=== PATIENT | male | born 1955 | race Caucasian/White ===

== ENCOUNTER 2023-01-09 18:32 | Emergency (ER) | payer OTHER, SELFPAY ==
[2023-01-09] VITALS (13 sets, daily range): BP systolic 138–174; BP diastolic 62–75; PULSE 82–135; RESP 20–26; TEMP 36.4; O2SAT 93–98; BMI 38.3
--- NOTE | 2023-01-09 19:20 | DI.RAD.S_ITS ---
PROCEDURE: XR CHEST 1V INDICATIONS: SOB TECHNIQUE: One view of the chest was acquired. COMPARISON: None. FINDINGS: Surgical changes and devices: None. Lungs and pleura: Left lower lobe infiltrate suspicious for pneumonia. No pleural effusions or pneumothorax. Mediastinum: Mediastinal contours appear normal. Heart size is mildly increased. Bones and chest wall: No suspicious bony lesions. Overlying soft tissues appear unremarkable. IMPRESSION: Left lower lobe pneumonia. Dictated by: Malorie Luke M.D. on 01/09/2023 at 19:58 Approved by: Malorie Luke M.D. on 01/09/2023 at 19:59
--- NOTE | 2023-01-09 19:41 | ED_ITS ---
HPI - General Adult <DO Vlad Faulkner Last Filed: 01/10/23 17:58> General Chief complaint: Shortness of Breath/Dyspnea Stated complaint: severe shortness of breath, weakness Time Seen by Provider: 01/09/23 19:32 Source: patient Mode of arrival: Wheelchair Limitations: no limitations History of Present Illness HPI narrative: Patient is a 67-year-old male who arrives with his son. He has a history of CLL. He is not currently being treated for this. He denies any prior cardiac history. No prior pulmonary history. Has never had a stroke. Does have a history of high blood pressure. No diagnosis of heart failure who arrives to the emergency department for evaluation of several weeks if not longer of shortness of breath and dyspnea on exertion. He does having swelling in his legs but he states that that is actually improved what it has been in the past. He is not having any chest pain. No cough. He states it is becoming very difficult for him to get up and walk around. He denies any fevers. Patient also states that for the past several weeks he has been on a strictly keto diet. He is no history of diabetes. Related Data Home Medications Medication Instructions Recorded Confirmed lisinopril 20 mg tablet 20 mg PO DAILY 02/21/22 02/21/22 rosuvastatin 5 mg tablet 5 mg PO DAILY 02/21/22 02/21/22 Previous Rx's Medication Instructions Recorded oxycodone-acetaminophen 5 mg-325 1 tab PO TID PRN pain #9 tabs 02/21/22 mg tablet Allergies Allergy/AdvReac Type Severity Reaction Status Date / Time iodine Allergy Intermediate Hives Verified 02/21/22 09:57 Review of Systems <DO Vlad Faulkner Last Filed: 01/10/23 17:58> Review of Systems ROS Unobtainable: All systems reviewed & are unremarkable except as noted in HPI and below Patient History <DO Vlad Faulkner Last Filed: 01/10/23 17:58> Medical History CLL (chronic lymphocytic leukemia) Social History Smoking Status: Former smoker Smoking Status: Former smoker Substance Use Type: marijuana Exam <DO Vlad Faulkner Last Filed: 01/10/23 17:58> Initial Vital Signs Initial Vital Signs: Vital Signs Temperature 97.6 F 01/09/23 19:19 Pulse Rate 108 H 01/09/23 19:19 Respiratory Rate 22 01/09/23 19:19 Blood Pressure 174/75 H 01/09/23 19:19 Pulse Oximetry 94 01/09/23 19:19 Oxygen Delivery Method Room Air 01/09/23 19:19 Const General: cooperative, No acute distress, diaphoretic and ill appearing [facility] Head: normal to inspection and normocephalic Chest Chest: normal inspection of the chest Resp Effort & Inspection: labored, no retractions and tachypneic Auscultation: clear to auscultation bilaterally, no rhonchi and no wheezes Cardio Rate: regular rate Rhythm: regular rhythm Pulses: radial pulses present GI Inspection: normal to inspection and non-distended Skin General: no rashes or lesions noted Neuro General: patient alert, patient awake, patient oriented x3 and moves all extremities Extrem General: capillary refill normal and edema Psych Appearance: disheveled <Scott Agarwal MD - Last Filed: 01/17/23 07:22> Initial Vital Signs Initial Vital Signs: Vital Signs Temperature 97.6 F 01/09/23 19:19 Pulse Rate 108 H 01/09/23 19:19 Respiratory Rate 22 01/09/23 19:19 Blood Pressure 174/75 H 01/09/23 19:19 Pulse Oximetry 94 01/09/23 19:19 Oxygen Delivery Method Room Air 01/09/23 19:19 <Lona Rizvi DO - Last Filed: 01/13/23 10:05> Initial Vital Signs Initial Vital Signs: Vital Signs Temperature 97.6 F 01/09/23 19:19 Pulse Rate 108 H 01/09/23 19:19 Respiratory Rate 22 01/09/23 19:19 Blood Pressure 174/75 H 01/09/23 19:19 Pulse Oximetry 94 01/09/23 19:19 Oxygen Delivery Method Room Air 01/09/23 19:19 Procedures <Chang Santos DO - Last Filed: 01/10/23 17:58> Intubation sedative: Etomidate Mg Given: 20 paralytic: Succinylcholine Mg Given: 120 Laryngoscope: fiber optic video scope ET Tube Size: 7.5 ET Tube Uncuffed: No Tube Secured Depth (cm): 23 Tube Secured Location: teeth Tube Placement Confirmation: Visualized tube passing through cords, Equal breath sounds bilaterally and Chest Xray Patient Tolerated Procedure: Well <Scott Agarwal MD - Last Filed: 01/17/23 07:22> Central Line Placement Right Femoral: Time of procedure: 07:20 Time Out Performed: Yes Patient Placed on Monitor/Pulse Ox: Yes MD Prep: mask, gown and gloves Central Line Prep: Chlorhexidine scrub and sterile drapes applied Local Anesthetic: other anesthetic (Patient intubated/sedated) Ultrasound Used for Placement: No Central Line Lumen Inserted: triple Post Procedure: sutured in place, good blood return, all ports aspirated, flushed, capped and sterile dressing applied Patient Tolerated Procedure: Well Complications: none Scores <Chang Santos DO - Last Filed: 01/10/23 17:58> [employer] coma scale eye opening: Spontaneous [place] coma scale verbal response: Orientated [place] coma scale motor response: [employer] coma scale total score: 15 <Scott Agarwal MD - Last Filed: 01/17/23 07:22> [employer] coma scale total score: 15 <Lona Rizvi DO - Last Filed: 01/13/23 10:05> [employer] [place] coma scale total score: 15 Course <Chang Santos DO - Last Filed: 01/10/23 17:58> Orders Ordered: Discontinued Medications Amiodarone HCl (Amiodarone 150 Mg/3 Ml Vial) 150 mg IV NOW ONE Stop: 01/10/23 06:28 Last Admin: 01/10/23 06:33 Dose: 150 mg Documented By: RADHA Amiodarone HCl (Amiodarone 150 Mg/3 Ml Vial) 150 mg IV NOW ONE Stop: 01/10/23 06:47 Aspirin (Aspirin 81 Mg Chew Tab) 324 mg PO NOW ONE Stop: 01/09/23 21:41 Last Admin: 01/09/23 22:17 Dose: 324 mg Documented By: ANNI Diphenhydramine HCl (Diphenhydramine 50 Mg/Ml Vial) 25 mg IV NOW ONE Stop: 01/09/23 20:28 Last Admin: 01/09/23 20:46 Dose: 25 mg Documented By: ANNI Etomidate (Etomidate 2 Mg/Ml 10 Ml Vial) 20 mg IV NOW ONE Stop: 01/10/23 07:37 Furosemide (Furosemide 40 Mg Tablet) 40 mg PO NOW ONE Stop: 01/10/23 03:43 Last Admin: 01/10/23 04:42 Dose: 40 mg Documented By: ANNI Heparin Sodium (Porcine) (Heparin 5,000 Unit/Ml Vial) 5,000 unit IV NOW ONE Stop: 01/09/23 23:16 Last Admin: 01/09/23 23:36 Dose: 5,000 unit Documented By: ANNI Heparin Sodium (Porcine) (Heparin 5,000 Unit/Ml Vial) 3,000 unit IV NOW ONE Stop: 01/10/23 07:46 Last Admin: 01/10/23 07:49 Dose: 3,000 unit Documented By: KARISSA Levofloxacin (Levaquin) 750 mg in 150 mls @ 100 mls/hr IV NOW ONE Stop: 01/09/23 21:54 Last Infusion: 01/09/23 23:30 Dose: 0 mls/hr Documented By: Infusion: 01/09/23 21:31 Dose: 100 mls/hr Documented By: Infusion: 01/09/23 20:58 Dose: 0 mls/hr Documented By: Admin: 01/09/23 20:58 Dose: 100 mls/hr Documented By: ANNI Heparin Sodium/Dextrose (Heparin Drip) 25,000 unit in 500 mls @ 20 mls/hr IV CONT CAITLYN; Protocol Last Titration: 01/10/23 10:47 Dose: 0 units/hr, 0 mls/hr Documented By: Titration: 01/10/23 08:35 Dose: 0 units/hr, 0 mls/hr Documented By: Admin: 01/10/23 07:55 Dose: 1,100 units/hr, 22 mls/hr Documented By: Titration: 01/10/23 07:55 Dose: 1,100 units/hr, 22 mls/hr Documented By: Titration: 01/10/23 06:30 Dose: 0 units/hr, 0 mls/hr Documented By: Admin: 01/09/23 23:46 Dose: 1,000 units/hr, 20 mls/hr Documented By: ANNI Furosemide 60 mg/ Sodium (Chloride) 56 mls @ 112 mls/hr IV NOW ONE Stop: 01/10/23 02:40 Last Admin: 01/10/23 03:46 Dose: Not Given Documented By: ANNI Amiodarone HCl/Dextrose (Nexterone) 360 mg in 200 mls @ 33.333 mls/hr IV NOW ONE; Protocol Stop: 01/10/23 12:31 Last Titration: 01/10/23 10:48 Dose: 33.33 mls/hr, 33.33 mls/hr Documented By: Admin: 01/10/23 07:00 Dose: 33.3 mls/hr, 33.3 mls/hr Documented By: KARISSA Fentanyl 1,000 mcg/ Dextrose 250 mls @ 21.829 mls/hr IV TITRATE CAITLYN; Protocol Last Titration: 01/10/23 10:48 Dose: 2 mcg/kg/hr, 62.369 mls/hr Documented By: Titration: 01/10/23 08:55 Dose: 2 mcg/kg/hr, 62.369 mls/hr Documented By: Titration: 01/10/23 08:02 Dose: 1 mcg/kg/hr, 31.185 mls/hr Documented By: Admin: 01/10/23 07:00 Dose: 0.7 mcg/kg/hr, 21.829 mls/hr Documented By: KARISSA Midazolam HCl 50 mg/ Dextrose 250 mls @ 25 mls/hr IV TITRATE CAITLYN; Protocol Last Infusion: 01/10/23 10:49 Dose: 10 mg/hr, 50 mls/hr Documented By: Infusion: 01/10/23 10:00 Dose: 10 mg/hr, 50 mls/hr Documented By: Infusion: 01/10/23 08:56 Dose: 7 mg/hr, 35 mls/hr Documented By: Admin: 01/10/23 07:10 Dose: 5 mg/hr, 25 mls/hr Documented By: KARISSA Dobutamine HCl/Dextrose (Dobutamine 250 Mg In D5w) 250 mg in 250 mls @ 18.711 mls/hr IV TITRATE CAITLYN; Protocol Last Titration: 01/10/23 10:49 Dose: 7 mcg/kg/min, 52.39 mls/hr Documented By: Titration: 01/10/23 08:18 Dose: 7 mcg/kg/min, 52.39 mls/hr Documented By: Admin: 01/10/23 08:05 Dose: 2.5 mcg/kg/min, 18.711 mls/hr Documented By: KARISSA NOREPINEPHRINE BITARTRATE/D5W (Levophed) 4 mg in 250 mls @ 30 mls/hr IV TITRATE CAITLYN; Protocol Last Titration: 01/10/23 10:49 Dose: 20 mcg/min, 75 mls/hr Documented By: Admin: 01/10/23 10:00 Dose: 20 mcg/min, 75 mls/hr Documented By: Titration: 01/10/23 10:00 Dose: 20 mcg/min, 75 mls/hr Documented By: Admin: 01/10/23 08:16 Dose: 20 mcg/min, 75 mls/hr Documented By: KARISSA Amiodarone HCl/Dextrose (Nexterone) 360 mg in 200 mls @ 16.7 mls/hr IV CONT CAITLYN; Protocol Stop: 01/11/23 00:29 Amiodarone HCl/Dextrose (Nexterone) 180 mg in 100 mls @ 16.7 mls/hr IV CONT CAITLYN; Protocol Stop: 01/11/23 06:30 Sodium Chloride (Normal Saline 0.9%) 1,000 mls @ 1,000 mls/hr IV BOLUS ONE Stop: 01/10/23 07:58 Methylprednisolone (Methylprednisolone 125 Mg/2 Ml Vial) 125 mg IV NOW ONE Stop: 01/09/23 20:28 Last Admin: 01/09/23 20:46 Dose: 125 mg Documented By: ANNI Sodium Bicarbonate (Sodium Bicarb 8.4% Syringe) 50 meq IV NOW ONE Stop: 01/10/23 08:01 Last Admin: 01/10/23 08:17 Dose: 50 meq Documented By: KARISSA Vital Signs Vital signs: Vital Signs - 8 hr 01/10/23 10:11 01/10/23 10:31 01/10/23 10:00 Temperature 96.7 F L Pulse Rate 94 H 92 H Respiratory Rate 40 H 40 H Blood Pressure 88/31 L 95/32 L 97/42 L Pulse Oximetry 94 01/10/23 10:00 01/10/23 10:02 01/10/23 10:03 Temperature Pulse Rate 92 H 91 H Respiratory Rate 39 H 42 H Blood Pressure 103/42 L Pulse Oximetry 93 91 01/10/23 10:03 01/10/23 10:04 01/10/23 10:06 Temperature 96.7 F L Pulse Rate 92 H 92 H 92 H Respiratory Rate 39 H 44 H 38 H Blood Pressure Pulse Oximetry 91 91 94 01/10/23 10:07 01/10/23 10:07 01/10/23 10:08 Temperature Pulse Rate 92 H 92 H Respiratory Rate 41 H 33 H Blood Pressure 86/40 L Pulse Oximetry 94 91 01/10/23 10:09 01/10/23 10:10 01/10/23 10:11 Temperature Pulse Rate 93 H 93 H 93 H Respiratory Rate Blood Pressure Pulse Oximetry 91 91 92 01/10/23 10:12 01/10/23 10:13 01/10/23 10:14 Temperature Pulse Rate 93 H 92 H 92 H Respiratory Rate Blood Pressure Pulse Oximetry 91 92 92 01/10/23 10:15 01/10/23 10:16 01/10/23 10:17 Temperature Pulse Rate 93 H 92 H 92 H Respiratory Rate Blood Pressure Pulse Oximetry 92 92 93 <Scott Agarwal MD - Last Filed: 01/17/23 07:22> Orders Ordered: Discontinued Medications Amiodarone HCl (Amiodarone 150 Mg/3 Ml Vial) 150 mg IV NOW ONE Stop: 01/10/23 06:28 Last Admin: 01/10/23 06:33 Dose: 150 mg Documented By: RADHA Amiodarone HCl (Amiodarone 150 Mg/3 Ml Vial) 150 mg IV NOW ONE Stop: 01/10/23 06:47 Aspirin (Aspirin 81 Mg Chew Tab) 324 mg PO NOW ONE Stop: 01/09/23 21:41 Last Admin: 01/09/23 22:17 Dose: 324 mg Documented By: ANNI Diphenhydramine HCl (Diphenhydramine 50 Mg/Ml Vial) 25 mg IV NOW ONE Stop: 01/09/23 20:28 Last Admin: 01/09/23 20:46 Dose: 25 mg Documented By: ANNI Etomidate (Etomidate 2 Mg/Ml 10 Ml Vial) 20 mg IV NOW ONE Stop: 01/10/23 07:37 Furosemide (Furosemide 40 Mg Tablet) 40 mg PO NOW ONE Stop: 01/10/23 03:43 Last Admin: 01/10/23 04:42 Dose: 40 mg Documented By: ANNI Heparin Sodium (Porcine) (Heparin 5,000 Unit/Ml Vial) 5,000 unit IV NOW ONE Stop: 01/09/23 23:16 Last Admin: 01/09/23 23:36 Dose: 5,000 unit Documented By: ANNI Heparin Sodium (Porcine) (Heparin 5,000 Unit/Ml Vial) 3,000 unit IV NOW ONE Stop: 01/10/23 07:46 Last Admin: 01/10/23 07:49 Dose: 3,000 unit Documented By: KARISAS Levofloxacin (Levaquin) 750 mg in 150 mls @ 100 mls/hr IV NOW ONE Stop: 01/09/23 21:54 Last Infusion: 01/09/23 23:30 Dose: 0 mls/hr Documented By: Infusion: 01/09/23 21:31 Dose: 100 mls/hr Documented By: Infusion: 01/09/23 20:58 Dose: 0 mls/hr Documented By: Admin: 01/09/23 20:58 Dose: 100 mls/hr Documented By: ANNI Heparin Sodium/Dextrose (Heparin Drip) 25,000 unit in 500 mls @ 20 mls/hr IV CONT CAITLYN; Protocol Last Titration: 01/10/23 10:47 Dose: 0 units/hr, 0 mls/hr Documented By: Titration: 01/10/23 08:35 Dose: 0 units/hr, 0 mls/hr Documented By: Admin: 01/10/23 07:55 Dose: 1,100 units/hr, 22 mls/hr Documented By: Titration: 01/10/23 07:55 Dose: 1,100 units/hr, 22 mls/hr Documented By: Titration: 01/10/23 06:30 Dose: 0 units/hr, 0 mls/hr Documented By: Admin: 01/09/23 23:46 Dose: 1,000 units/hr, 20 mls/hr Documented By: ANNI Furosemide 60 mg/ Sodium (Chloride) 56 mls @ 112 mls/hr IV NOW ONE Stop: 01/10/23 02:40 Last Admin: 01/10/23 03:46 Dose: Not Given Documented By: ANNI Amiodarone HCl/Dextrose (Nexterone) 360 mg in 200 mls @ 33.333 mls/hr IV NOW ONE; Protocol Stop: 01/10/23 12:31 Last Titration: 01/10/23 10:48 Dose: 33.33 mls/hr, 33.33 mls/hr Documented By: Admin: 01/10/23 07:00 Dose: 33.3 mls/hr, 33.3 mls/hr Documented By: KARISSA Fentanyl 1,000 mcg/ Dextrose 250 mls @ 21.829 mls/hr IV TITRATE CAITLYN; Protocol Last Titration: 01/10/23 10:48 Dose: 2 mcg/kg/hr, 62.369 mls/hr Documented By: Titration: 01/10/23 08:55 Dose: 2 mcg/kg/hr, 62.369 mls/hr Documented By: Titration: 01/10/23 08:02 Dose: 1 mcg/kg/hr, 31.185 mls/hr Documented By: Admin: 01/10/23 07:00 Dose: 0.7 mcg/kg/hr, 21.829 mls/hr Documented By: KARISSA Midazolam HCl 50 mg/ Dextrose 250 mls @ 25 mls/hr IV TITRATE CAITLYN; Protocol Last Infusion: 01/10/23 10:49 Dose: 10 mg/hr, 50 mls/hr Documented By: Infusion: 01/10/23 10:00 Dose: 10 mg/hr, 50 mls/hr Documented By: Infusion: 01/10/23 08:56 Dose: 7 mg/hr, 35 mls/hr Documented By: Admin: 01/10/23 07:10 Dose: 5 mg/hr, 25 mls/hr Documented By: KARISSA Dobutamine HCl/Dextrose (Dobutamine 250 Mg In D5w) 250 mg in 250 mls @ 18.711 mls/hr IV TITRATE CAITLYN; Protocol Last Titration: 01/10/23 10:49 Dose: 7 mcg/kg/min, 52.39 mls/hr Documented By: Titration: 01/10/23 08:18 Dose: 7 mcg/kg/min, 52.39 mls/hr Documented By: Admin: 01/10/23 08:05 Dose: 2.5 mcg/kg/min, 18.711 mls/hr Documented By: KARISSA NOREPINEPHRINE BITARTRATE/D5W (Levophed) 4 mg in 250 mls @ 30 mls/hr IV TITRATE CAITLYN; Protocol Last Titration: 01/10/23 10:49 Dose: 20 mcg/min, 75 mls/hr Documented By: Admin: 01/10/23 10:00 Dose: 20 mcg/min, 75 mls/hr Documented By: Titration: 01/10/23 10:00 Dose: 20 mcg/min, 75 mls/hr Documented By: Admin: 01/10/23 08:16 Dose: 20 mcg/min, 75 mls/hr Documented By: KARISSA Amiodarone HCl/Dextrose (Nexterone) 360 mg in 200 mls @ 16.7 mls/hr IV CONT CAITLYN; Protocol Stop: 01/11/23 00:29 Amiodarone HCl/Dextrose (Nexterone) 180 mg in 100 mls @ 16.7 mls/hr IV CONT CAITLYN; Protocol Stop: 01/11/23 06:30 Sodium Chloride (Normal Saline 0.9%) 1,000 mls @ 1,000 mls/hr IV BOLUS ONE Stop: 01/10/23 07:58 Methylprednisolone (Methylprednisolone 125 Mg/2 Ml Vial) 125 mg IV NOW ONE Stop: 01/09/23 20:28 Last Admin: 01/09/23 20:46 Dose: 125 mg Documented By: ANNI Sodium Bicarbonate (Sodium Bicarb 8.4% Syringe) 50 meq IV NOW ONE Stop: 01/10/23 08:01 Last Admin: 01/10/23 08:17 Dose: 50 meq Documented By: KARISSA Vital Signs Vital signs: Vital Signs - 8 hr 01/10/23 10:11 01/10/23 10:31 01/10/23 10:00 Temperature 96.7 F L Pulse Rate 94 H 92 H Respiratory Rate 40 H 40 H Blood Pressure 88/31 L 95/32 L 97/42 L Pulse Oximetry 94 01/10/23 10:00 01/10/23 10:02 01/10/23 10:03 Temperature Pulse Rate 92 H 91 H Respiratory Rate 39 H 42 H Blood Pressure 103/42 L Pulse Oximetry 93 91 01/10/23 10:03 01/10/23 10:04 01/10/23 10:06 Temperature 96.7 F L Pulse Rate 92 H 92 H 92 H Respiratory Rate 39 H 44 H 38 H Blood Pressure Pulse Oximetry 91 91 94 01/10/23 10:07 01/10/23 10:07 01/10/23 10:08 Temperature Pulse Rate 92 H 92 H Respiratory Rate 41 H 33 H Blood Pressure 86/40 L Pulse Oximetry 94 91 01/10/23 10:09 01/10/23 10:10 01/10/23 10:11 Temperature Pulse Rate 93 H 93 H 93 H Respiratory Rate Blood Pressure Pulse Oximetry 91 91 92 01/10/23 10:12 01/10/23 10:13 01/10/23 10:14 Temperature Pulse Rate 93 H 92 H 92 H Respiratory Rate Blood Pressure Pulse Oximetry 91 92 92 01/10/23 10:15 01/10/23 10:16 01/10/23 10:17 Temperature Pulse Rate 93 H 92 H 92 H Respiratory Rate Blood Pressure Pulse Oximetry 92 92 93 <Lona Rizvi DO - Last Filed: 01/13/23 10:05> Orders Ordered: Discontinued Medications Amiodarone HCl (Amiodarone 150 Mg/3 Ml Vial) 150 mg IV NOW ONE Stop: 01/10/23 06:28 Last Admin: 01/10/23 06:33 Dose: 150 mg Documented By: RADHA Amiodarone HCl (Amiodarone 150 Mg/3 Ml Vial) 150 mg IV NOW ONE Stop: 01/10/23 06:47 Aspirin (Aspirin 81 Mg Chew Tab) 324 mg PO NOW ONE Stop: 01/09/23 21:41 Last Admin: 01/09/23 22:17 Dose: 324 mg Documented By: ANNI Diphenhydramine HCl (Diphenhydramine 50 Mg/Ml Vial) 25 mg IV NOW ONE Stop: 01/09/23 20:28 Last Admin: 01/09/23 20:46 Dose: 25 mg Documented By: ANNI Etomidate (Etomidate 2 Mg/Ml 10 Ml Vial) 20 mg IV NOW ONE Stop: 01/10/23 07:37 Furosemide (Furosemide 40 Mg Tablet) 40 mg PO NOW ONE Stop: 01/10/23 03:43 Last Admin: 01/10/23 04:42 Dose: 40 mg Documented By: ANNI Heparin Sodium (Porcine) (Heparin 5,000 Unit/Ml Vial) 5,000 unit IV NOW ONE Stop: 01/09/23 23:16 Last Admin: 01/09/23 23:36 Dose: 5,000 unit Documented By: ANNI Heparin Sodium (Porcine) (Heparin 5,000 Unit/Ml Vial) 3,000 unit IV NOW ONE Stop: 01/10/23 07:46 Last Admin: 01/10/23 07:49 Dose: 3,000 unit Documented By: KARISSA Levofloxacin (Levaquin) 750 mg in 150 mls @ 100 mls/hr IV NOW ONE Stop: 01/09/23 21:54 Last Infusion: 01/09/23 23:30 Dose: 0 mls/hr Documented By: Infusion: 01/09/23 21:31 Dose: 100 mls/hr Documented By: Infusion: 01/09/23 20:58 Dose: 0 mls/hr Documented By: Admin: 01/09/23 20:58 Dose: 100 mls/hr Documented By: ANNI Heparin Sodium/Dextrose (Heparin Drip) 25,000 unit in 500 mls @ 20 mls/hr IV CONT CAITLYN; Protocol Last Titration: 01/10/23 10:47 Dose: 0 units/hr, 0 mls/hr Documented By: Titration: 01/10/23 08:35 Dose: 0 units/hr, 0 mls/hr Documented By: Admin: 01/10/23 07:55 Dose: 1,100 units/hr, 22 mls/hr Documented By: Titration: 01/10/23 07:55 Dose: 1,100 units/hr, 22 mls/hr Documented By: Titration: 01/10/23 06:30 Dose: 0 units/hr, 0 mls/hr Documented By: Admin: 01/09/23 23:46 Dose: 1,000 units/hr, 20 mls/hr Documented By: ANNI Furosemide 60 mg/ Sodium (Chloride) 56 mls @ 112 mls/hr IV NOW ONE Stop: 01/10/23 02:40 Last Admin: 01/10/23 03:46 Dose: Not Given Documented By: ANNI Amiodarone HCl/Dextrose (Nexterone) 360 mg in 200 mls @ 33.333 mls/hr IV NOW ONE; Protocol Stop: 01/10/23 12:31 Last Titration: 01/10/23 10:48 Dose: 33.33 mls/hr, 33.33 mls/hr Documented By: Admin: 01/10/23 07:00 Dose: 33.3 mls/hr, 33.3 mls/hr Documented By: KARISSA Fentanyl 1,000 mcg/ Dextrose 250 mls @ 21.829 mls/hr IV TITRATE CAITLYN; Protocol Last Titration: 01/10/23 10:48 Dose: 2 mcg/kg/hr, 62.369 mls/hr Documented By: Titration: 01/10/23 08:55 Dose: 2 mcg/kg/hr, 62.369 mls/hr Documented By: Titration: 01/10/23 08:02 Dose: 1 mcg/kg/hr, 31.185 mls/hr Documented By: Admin: 01/10/23 07:00 Dose: 0.7 mcg/kg/hr, 21.829 mls/hr Documented By: KARISSA Midazolam HCl 50 mg/ Dextrose 250 mls @ 25 mls/hr IV TITRATE CAITLYN; Protocol Last Infusion: 01/10/23 10:49 Dose: 10 mg/hr, 50 mls/hr Documented By: Infusion: 01/10/23 10:00 Dose: 10 mg/hr, 50 mls/hr Documented By: Infusion: 01/10/23 08:56 Dose: 7 mg/hr, 35 mls/hr Documented By: Admin: 01/10/23 07:10 Dose: 5 mg/hr, 25 mls/hr Documented By: KARISSA Dobutamine HCl/Dextrose (Dobutamine 250 Mg In D5w) 250 mg in 250 mls @ 18.711 mls/hr IV TITRATE CAITLYN; Protocol Last Titration: 01/10/23 10:49 Dose: 7 mcg/kg/min, 52.39 mls/hr Documented By: Titration: 01/10/23 08:18 Dose: 7 mcg/kg/min, 52.39 mls/hr Documented By: Admin: 01/10/23 08:05 Dose: 2.5 mcg/kg/min, 18.711 mls/hr Documented By: KARISSA NOREPINEPHRINE BITARTRATE/D5W (Levophed) 4 mg in 250 mls @ 30 mls/hr IV TITRATE CAITLYN; Protocol Last Titration: 01/10/23 10:49 Dose: 20 mcg/min, 75 mls/hr Documented By: Admin: 01/10/23 10:00 Dose: 20 mcg/min, 75 mls/hr Documented By: Titration: 01/10/23 10:00 Dose: 20 mcg/min, 75 mls/hr Documented By: Admin: 01/10/23 08:16 Dose: 20 mcg/min, 75 mls/hr Documented By: KARISSA Amiodarone HCl/Dextrose (Nexterone) 360 mg in 200 mls @ 16.7 mls/hr IV CONT CAITLYN; Protocol Stop: 01/11/23 00:29 Amiodarone HCl/Dextrose (Nexterone) 180 mg in 100 mls @ 16.7 mls/hr IV CONT CAITLYN; Protocol Stop: 01/11/23 06:30 Sodium Chloride (Normal Saline 0.9%) 1,000 mls @ 1,000 mls/hr IV BOLUS ONE Stop: 01/10/23 07:58 Methylprednisolone (Methylprednisolone 125 Mg/2 Ml Vial) 125 mg IV NOW ONE Stop: 01/09/23 20:28 Last Admin: 01/09/23 20:46 Dose: 125 mg Documented By: ANNI Sodium Bicarbonate (Sodium Bicarb 8.4% Syringe) 50 meq IV NOW ONE Stop: 01/10/23 08:01 Last Admin: 01/10/23 08:17 Dose: 50 meq Documented By: KARISSA Vital Signs Vital signs: Vital Signs - 8 hr 01/10/23 10:11 01/10/23 10:31 01/10/23 10:00 Temperature 96.7 F L Pulse Rate 94 H 92 H Respiratory Rate 40 H 40 H Blood Pressure 88/31 L 95/32 L 97/42 L Pulse Oximetry 94 01/10/23 10:00 01/10/23 10:02 01/10/23 10:03 Temperature Pulse Rate 92 H 91 H Respiratory Rate 39 H 42 H Blood Pressure 103/42 L Pulse Oximetry 93 91 01/10/23 10:03 01/10/23 10:04 01/10/23 10:06 Temperature 96.7 F L Pulse Rate 92 H 92 H 92 H Respiratory Rate 39 H 44 H 38 H Blood Pressure Pulse Oximetry 91 91 94 01/10/23 10:07 01/10/23 10:07 01/10/23 10:08 Temperature Pulse Rate 92 H 92 H Respiratory Rate 41 H 33 H Blood Pressure 86/40 L Pulse Oximetry 94 91 01/10/23 10:09 01/10/23 10:10 01/10/23 10:11 Temperature Pulse Rate 93 H 93 H 93 H Respiratory Rate Blood Pressure Pulse Oximetry 91 91 92 01/10/23 10:12 01/10/23 10:13 01/10/23 10:14 Temperature Pulse Rate 93 H 92 H 92 H Respiratory Rate Blood Pressure Pulse Oximetry 91 92 92 01/10/23 10:15 01/10/23 10:16 01/10/23 10:17 Temperature Pulse Rate 93 H 92 H 92 H Respiratory Rate Blood Pressure Pulse Oximetry 92 92 93 Medical Decision Making <Chang Santos, DO - Last Filed: 01/10/23 17:58> Lab Data Lab results reviewed: Yes I reviewed the patient's lab results. 01/10/23 09:12 01/10/23 08:10 Labs: Lab Results 01/09/23 01/09/23 01/09/23 Range/Units 19:41 19:57 19:57 WBC 70.4 H* (4.5-11.0) X10^3/uL RBC 3.09 L (4.5-5.9) X10^6/uL Hgb 7.5 L (13.5-17.5) g/dL Hct 25.3 L (41-53) % MCV 82.1 (80-100) fL MCH 24.3 L (26-34) PG MCHC 29.7 L (30-36) % RDW 18.7 H (11.6-14.8) % Plt Count 88 L (150-400) X10^3/uL Neut % (Auto) Not Reportable Lymph % (Auto) Not Reportable [place] % (Auto) Not Reportable Eos % (Auto) Not Reportable Baso % (Auto) Not Reportable Neut # (Auto) (5419-3892) /uL Lymph # (Auto) Not Reportable [place] # (Auto) Not Reportable Eos # (Auto) (0-450) /uL Baso # (Auto) Not Reportable Total Counted 100 Seg Neutrophils % 12.0 L (38-70) % Band Neutrophils % (3-7) % Lymphocytes % (Manual) 84.0 H (25-45) % Atypical Lymphs % 3.0 H ( - 0) % Monocytes % (Manual) 1.0 L (2-11) % Neutrophils # (Manual) 8448 H (2774-3668) /uL Smudge Cells 4+ H RBC Morphology See below Hypochromasia 1+ H Poikilocytosis 3+ H Anisocytosis 1+ H Tear Drop Cells 1+ H Ovalocytes 2+ H [place] Cells Smear Path Review PT (10.1-12.7) SECONDS INR (0.9-1.3) APTT (26-36) SECONDS ABG pH 7.48 H (7.35-7.45) ABG pCO2 28.8 L (35-45) mmHg ABG pO2 66 L (80-100) mmHg ABG HCO3 22 L (23-27) mmol/L ABG Total CO2 22 L (23-27) mmol/L ABG O2 Saturation 95 (95-100) % ABG Base Excess -2.0 (-2-3) mmol/L FiO2 21 Sodium 134 L (137-145) mmol/L Potassium 5.0 (3.4-5.1) mmol/L Chloride 102 (98-107) mmol/L Carbon Dioxide 20 L (22-32) mmol/L BUN 21 H (9-20) mg/dL Creatinine 0.86 (0.66-1.25) mg/dL Estimated GFR > 60 (>60) mL/min BUN/Creatinine Ratio 24.4 H (6-22) Glucose 142 H (80-110) mg/dL Lactate (0.7-2.1) mmol/L Calcium 8.6 (8.4-10.2) mg/dL Phosphorus (2.3-3.7) mg/dL Magnesium (1.6-2.3) mg/dL Total Bilirubin 0.8 (0.2-1.3) mg/dL AST 32 (17-59) IU/L ALT 28 (<50) IU/L Alkaline Phosphatase 129 H (38-126) U/L Total Creatine Kinase < 20 L (55-170) U/L CK-MB (CK-2) TNP CK-MB (CK-2) Rel Index TNP Troponin I 0.135 H* (0.01-0.034) ng/mL NT-Pro-B Natriuret Pep (<125) pg/mL Total Protein 6.3 (6.3-8.2) g/dL Albumin 3.7 (3.5-5.0) g/dL Globulin 2.6 (1.7-4.1) g/dL Albumin/Globulin Ratio 1.4 (1.0-2.8) Lipase 38 (23-300) U/L Ketones (<0.27) mmol/L A. baumannii (PCR) (Not Detect) Chlamy pneumoniae PCR (Not Detect) Adenovirus (PCR) (Not Detect) B. pertussis DNA (PCR) (Not Detecte) B.parapertussis DNA PCR (Not Detecte) Claudette albicans (PCR) (Not Detect) C. glabrata (PCR) (Not Detect) C. krusei (PCR) (Not Detect) C. parapsilosis (PCR) (Not Detect) C. tropicalis (PCR) (Not Detect) Coronavirus OC43 (PCR) (Not Detect) Coronavirus HKU1 (PCR) (Not Detect) Coronavirus 229E (PCR) (Not Detect) SARS-CoV-2 (PCR) (Not Detecte) Coronavirus NL63 (PCR) (Not Detect) Enterobacteriac sp PCR (Not Detect) E. cloacae complex PCR (Not Detect) Enterococcus sp PCR (Not Detect) E. coli (PCR) (Not Detect) H. influenzae (PCR) (Not Detect) Human Metapneumovir PCR (Not Detect) Influenza Type A (PCR) (Not Detect) Influenza Type B (PCR) (Not Detect) Klebsiella oxytoca PCR (Not Detect) Klebsiella pneumoniae (Not Detect) List. monocytogenes PCR (Not Detect) M. pneumoniae (PCR) (Not Detect) N. meningitidis (PCR) (Not Detect) Parainfluenza 1 (PCR) (Not Detect) Parainfluenza 2 (PCR) (Not Detect) Parainfluenza 3 (PCR) (Not Detect) Parainfluenza 4 (PCR) (Not Detect) Proteus species (PCR) (Not Detect) RSV (PCR) (Not Detect) Entero/Rhino (PCR) (Not Detect) Serratia marcescens PCR (Not Detect) Staphylococcus sp PCR (Not Detect) Staph aureus (PCR) (Not Detect) mecA-Methicil Res Gene Streptococcus sp PCR (Not Detect) Group A Strep (PCR) (Not Detect) Strep agalactiae (PCR) (Not Detect) Strep pneumoniae (PCR) (Not Detect) P. aeruginosa (PCR) (Not Detect) KPC-Carbap Res Gene PCR Blood Type Antibody Screen Crossmatch 01/09/23 01/09/23 01/09/23 Range/Units 19:57 19:57 19:57 WBC (4.5-11.0) X10^3/uL RBC (4.5-5.9) X10^6/uL Hgb (13.5-17.5) g/dL Hct (41-53) % MCV (80-100) fL MCH (26-34) PG MCHC (30-36) % RDW (11.6-14.8) % Plt Count (150-400) X10^3/uL Neut % (Auto) Lymph % (Auto) [place] % (Auto) Eos % (Auto) Baso % (Auto) Neut # (Auto) (2122-0267) /uL Lymph # (Auto) [place] # (Auto) Eos # (Auto) (0-450) /uL Baso # (Auto) Total Counted Seg Neutrophils % (38-70) % Band Neutrophils % (3-7) % Lymphocytes % (Manual) (25-45) % Atypical Lymphs % ( - 0) % Monocytes % (Manual) (2-11) % Neutrophils # (Manual) (3032-3290) /uL Smudge Cells RBC Morphology Hypochromasia Poikilocytosis Anisocytosis Tear Drop Cells Ovalocytes [place] Cells Smear Path Review PT (10.1-12.7) SECONDS INR (0.9-1.3) APTT (26-36) SECONDS ABG pH (7.35-7.45) ABG pCO2 (35-45) mmHg ABG pO2 (80-100) mmHg ABG HCO3 (23-27) mmol/L ABG Total CO2 (23-27) mmol/L ABG O2 Saturation (95-100) % ABG Base Excess (-2-3) mmol/L FiO2 Sodium (137-145) mmol/L Potassium (3.4-5.1) mmol/L Chloride (98-107) mmol/L Carbon Dioxide (22-32) mmol/L BUN (9-20) mg/dL Creatinine (0.66-1.25) mg/dL Estimated GFR (>60) mL/min BUN/Creatinine Ratio (6-22) Glucose (80-110) mg/dL Lactate 1.2 (0.7-2.1) mmol/L Calcium (8.4-10.2) mg/dL Phosphorus 4.3 H (2.3-3.7) mg/dL Magnesium 2.2 (1.6-2.3) mg/dL Total Bilirubin (0.2-1.3) mg/dL AST (17-59) IU/L ALT (<50) IU/L Alkaline Phosphatase (38-126) U/L Total Creatine Kinase (55-170) U/L CK-MB (CK-2) CK-MB (CK-2) Rel Index Troponin I (0.01-0.034) ng/mL NT-Pro-B Natriuret Pep 6590 H (<125) pg/mL Total Protein (6.3-8.2) g/dL Albumin (3.5-5.0) g/dL Globulin (1.7-4.1) g/dL Albumin/Globulin Ratio (1.0-2.8) Lipase (23-300) U/L Ketones 0.87 H (<0.27) mmol/L A. baumannii (PCR) (Not Detect) Chlamy pneumoniae PCR (Not Detect) Adenovirus (PCR) (Not Detect) B. pertussis DNA (PCR) (Not Detecte) B.parapertussis DNA PCR (Not Detecte) Claudette albicans (PCR) (Not Detect) C. glabrata (PCR) (Not Detect) C. krusei (PCR) (Not Detect) C. parapsilosis (PCR) (Not Detect) C. tropicalis (PCR) (Not Detect) Coronavirus OC43 (PCR) (Not Detect) Coronavirus HKU1 (PCR) (Not Detect) Coronavirus 229E (PCR) (Not Detect) SARS-CoV-2 (PCR) (Not Detecte) Coronavirus NL63 (PCR) (Not Detect) Enterobacteriac sp PCR (Not Detect) E. cloacae complex PCR (Not Detect) Enterococcus sp PCR (Not Detect) E. coli (PCR) (Not Detect) H. influenzae (PCR) (Not Detect) Human Metapneumovir PCR (Not Detect) Influenza Type A (PCR) (Not Detect) Influenza Type B (PCR) (Not Detect) Klebsiella oxytoca PCR (Not Detect) Klebsiella pneumoniae (Not Detect) List. monocytogenes PCR (Not Detect) M. pneumoniae (PCR) (Not Detect) N. meningitidis (PCR) (Not Detect) Parainfluenza 1 (PCR) (Not Detect) Parainfluenza 2 (PCR) (Not Detect) Parainfluenza 3 (PCR) (Not Detect) Parainfluenza 4 (PCR) (Not Detect) Proteus species (PCR) (Not Detect) RSV (PCR) (Not Detect) Entero/Rhino (PCR) (Not Detect) Serratia marcescens PCR (Not Detect) Staphylococcus sp PCR (Not Detect) Staph aureus (PCR) (Not Detect) mecA-Methicil Res Gene Streptococcus sp PCR (Not Detect) Group A Strep (PCR) (Not Detect) Strep agalactiae (PCR) (Not Detect) Strep pneumoniae (PCR) (Not Detect) P. aeruginosa (PCR) (Not Detect) KPC-Carbap Res Gene PCR Blood Type Antibody Screen Crossmatch 01/09/23 01/09/23 01/09/23 Range/Units 19:57 19:57 19:57 WBC (4.5-11.0) X10^3/uL RBC (4.5-5.9) X10^6/uL Hgb (13.5-17.5) g/dL Hct (41-53) % MCV (80-100) fL MCH (26-34) PG MCHC (30-36) % RDW (11.6-14.8) % Plt Count (150-400) X10^3/uL Neut % (Auto) Lymph % (Auto) [place] % (Auto) Eos % (Auto) Baso % (Auto) Neut # (Auto) (1929-1356) /uL Lymph # (Auto) [place] # (Auto) Eos # (Auto) (0-450) /uL Baso # (Auto) Total Counted Seg Neutrophils % (38-70) % Band Neutrophils % (3-7) % Lymphocytes % (Manual) (25-45) % Atypical Lymphs % ( - 0) % Monocytes % (Manual) (2-11) % Neutrophils # (Manual) (7580-7427) /uL Smudge Cells RBC Morphology Hypochromasia Poikilocytosis Anisocytosis Tear Drop Cells Ovalocytes [place] Cells Smear Path Review PT 15.7 H (10.1-12.7) SECONDS INR 1.4 H (0.9-1.3) APTT 29 (26-36) SECONDS ABG pH (7.35-7.45) ABG pCO2 (35-45) mmHg ABG pO2 (80-100) mmHg ABG HCO3 (23-27) mmol/L ABG Total CO2 (23-27) mmol/L ABG O2 Saturation (95-100) % ABG Base Excess (-2-3) mmol/L FiO2 Sodium (137-145) mmol/L Potassium (3.4-5.1) mmol/L Chloride (98-107) mmol/L Carbon Dioxide (22-32) mmol/L BUN (9-20) mg/dL Creatinine (0.66-1.25) mg/dL Estimated GFR (>60) mL/min BUN/Creatinine Ratio (6-22) Glucose (80-110) mg/dL Lactate (0.7-2.1) mmol/L Calcium (8.4-10.2) mg/dL Phosphorus (2.3-3.7) mg/dL Magnesium (1.6-2.3) mg/dL Total Bilirubin (0.2-1.3) mg/dL AST (17-59) IU/L ALT (<50) IU/L Alkaline Phosphatase (38-126) U/L Total Creatine Kinase (55-170) U/L CK-MB (CK-2) CK-MB (CK-2) Rel Index Troponin I (0.01-0.034) ng/mL NT-Pro-B Natriuret Pep (<125) pg/mL Total Protein (6.3-8.2) g/dL Albumin (3.5-5.0) g/dL Globulin (1.7-4.1) g/dL Albumin/Globulin Ratio (1.0-2.8) Lipase (23-300) U/L Ketones (<0.27) mmol/L A. baumannii (PCR) Not detected (Not Detect) Chlamy pneumoniae PCR (Not Detect) Adenovirus (PCR) (Not Detect) B. pertussis DNA (PCR) (Not Detecte) B.parapertussis DNA PCR (Not Detecte) Claudette albicans (PCR) Not detected (Not Detect) C. glabrata (PCR) Not detected (Not Detect) C. krusei (PCR) Not detected (Not Detect) C. parapsilosis (PCR) Not detected (Not Detect) C. tropicalis (PCR) Not detected (Not Detect) Coronavirus OC43 (PCR) (Not Detect) Coronavirus HKU1 (PCR) (Not Detect) Coronavirus 229E (PCR) (Not Detect) SARS-CoV-2 (PCR) (Not Detecte) Coronavirus NL63 (PCR) (Not Detect) Enterobacteriac sp PCR Not detected (Not Detect) E. cloacae complex PCR Not detected (Not Detect) Enterococcus sp PCR Not detected (Not Detect) E. coli (PCR) Not detected (Not Detect) H. influenzae (PCR) Not detected (Not Detect) Human Metapneumovir PCR (Not Detect) Influenza Type A (PCR) (Not Detect) Influenza Type B (PCR) (Not Detect) Klebsiella oxytoca PCR Not detected (Not Detect) Klebsiella pneumoniae Not detected (Not Detect) List. monocytogenes PCR Not detected (Not Detect) M. pneumoniae (PCR) (Not Detect) N. meningitidis (PCR) Not detected (Not Detect) Parainfluenza 1 (PCR) (Not Detect) Parainfluenza 2 (PCR) (Not Detect) Parainfluenza 3 (PCR) (Not Detect) Parainfluenza 4 (PCR) (Not Detect) Proteus species (PCR) Not detected (Not Detect) RSV (PCR) (Not Detect) Entero/Rhino (PCR) (Not Detect) Serratia marcescens PCR Not detected (Not Detect) Staphylococcus sp PCR Not detected (Not Detect) Staph aureus (PCR) Not detected (Not Detect) mecA-Methicil Res Gene Not Reportable Streptococcus sp PCR Detected H (Not Detect) Group A Strep (PCR) Not detected (Not Detect) Strep agalactiae (PCR) Not detected (Not Detect) Strep pneumoniae (PCR) Not detected (Not Detect) P. aeruginosa (PCR) Not detected (Not Detect) KPC-Carbap Res Gene PCR Not Reportable Blood Type Antibody Screen Crossmatch 01/09/23 01/09/23 01/10/23 Range/Units 20:08 22:40 01:55 WBC (4.5-11.0) X10^3/uL RBC (4.5-5.9) X10^6/uL Hgb (13.5-17.5) g/dL Hct (41-53) % MCV (80-100) fL MCH (26-34) PG MCHC (30-36) % RDW (11.6-14.8) % Plt Count (150-400) X10^3/uL Neut % (Auto) Lymph % (Auto) [place] % (Auto) Eos % (Auto) Baso % (Auto) Neut # (Auto) (0519-4957) /uL Lymph # (Auto) [place] # (Auto) Eos # (Auto) (0-450) /uL Baso # (Auto) Total Counted Seg Neutrophils % (38-70) % Band Neutrophils % (3-7) % Lymphocytes % (Manual) (25-45) % Atypical Lymphs % ( - 0) % Monocytes % (Manual) (2-11) % Neutrophils # (Manual) (9055-7717) /uL Smudge Cells RBC Morphology Hypochromasia Poikilocytosis Anisocytosis Tear Drop Cells Ovalocytes [place] Cells Smear Path Review PT (10.1-12.7) SECONDS INR (0.9-1.3) APTT (26-36) SECONDS ABG pH (7.35-7.45) ABG pCO2 (35-45) mmHg ABG pO2 (80-100) mmHg ABG HCO3 (23-27) mmol/L ABG Total CO2 (23-27) mmol/L ABG O2 Saturation (95-100) % ABG Base Excess (-2-3) mmol/L FiO2 Sodium (137-145) mmol/L Potassium (3.4-5.1) mmol/L Chloride (98-107) mmol/L Carbon Dioxide (22-32) mmol/L BUN (9-20) mg/dL Creatinine (0.66-1.25) mg/dL Estimated GFR (>60) mL/min BUN/Creatinine Ratio (6-22) Glucose (80-110) mg/dL Lactate (0.7-2.1) mmol/L Calcium (8.4-10.2) mg/dL Phosphorus (2.3-3.7) mg/dL Magnesium (1.6-2.3) mg/dL Total Bilirubin (0.2-1.3) mg/dL AST (17-59) IU/L ALT (<50) IU/L Alkaline Phosphatase (38-126) U/L Total Creatine Kinase < 20 L 24 L (55-170) U/L CK-MB (CK-2) TNP TNP CK-MB (CK-2) Rel Index TNP TNP Troponin I 0.346 H* 0.414 H* (0.01-0.034) ng/mL NT-Pro-B Natriuret Pep (<125) pg/mL Total Protein (6.3-8.2) g/dL Albumin (3.5-5.0) g/dL Globulin (1.7-4.1) g/dL Albumin/Globulin Ratio (1.0-2.8) Lipase (23-300) U/L Ketones (<0.27) mmol/L A. baumannii (PCR) (Not Detect) Chlamy pneumoniae PCR Not detected (Not Detect) Adenovirus (PCR) Not detected (Not Detect) B. pertussis DNA (PCR) Not detected (Not Detecte) B.parapertussis DNA PCR Not detected (Not Detecte) Claudette albicans (PCR) (Not Detect) C. glabrata (PCR) (Not Detect) C. krusei (PCR) (Not Detect) C. parapsilosis (PCR) (Not Detect) C. tropicalis (PCR) (Not Detect) Coronavirus OC43 (PCR) Not detected (Not Detect) Coronavirus HKU1 (PCR) Not detected (Not Detect) Coronavirus 229E (PCR) Not detected (Not Detect) SARS-CoV-2 (PCR) Not detected (Not Detecte) Coronavirus NL63 (PCR) Not detected (Not Detect) Enterobacteriac sp PCR (Not Detect) E. cloacae complex PCR (Not Detect) Enterococcus sp PCR (Not Detect) E. coli (PCR) (Not Detect) H. influenzae (PCR) (Not Detect) Human Metapneumovir PCR Not detected (Not Detect) Influenza Type A (PCR) Not detected (Not Detect) Influenza Type B (PCR) Not detected (Not Detect) Klebsiella oxytoca PCR (Not Detect) Klebsiella pneumoniae (Not Detect) List. monocytogenes PCR (Not Detect) M. pneumoniae (PCR) Not detected (Not Detect) N. meningitidis (PCR) (Not Detect) Parainfluenza 1 (PCR) Not detected (Not Detect) Parainfluenza 2 (PCR) Not detected (Not Detect) Parainfluenza 3 (PCR) Not detected (Not Detect) Parainfluenza 4 (PCR) Not detected (Not Detect) Proteus species (PCR) (Not Detect) RSV (PCR) Not detected (Not Detect) Entero/Rhino (PCR) Not detected (Not Detect) Serratia marcescens PCR (Not Detect) Staphylococcus sp PCR (Not Detect) Staph aureus (PCR) (Not Detect) mecA-Methicil Res Gene Streptococcus sp PCR (Not Detect) Group A Strep (PCR) (Not Detect) Strep agalactiae (PCR) (Not Detect) Strep pneumoniae (PCR) (Not Detect) P. aeruginosa (PCR) (Not Detect) KPC-Carbap Res Gene PCR Blood Type Antibody Screen Crossmatch 01/10/23 01/10/23 01/10/23 Range/Units 05:44 05:44 07:45 WBC (4.5-11.0) X10^3/uL RBC (4.5-5.9) X10^6/uL Hgb (13.5-17.5) g/dL Hct (41-53) % MCV (80-100) fL MCH (26-34) PG MCHC (30-36) % RDW (11.6-14.8) % Plt Count (150-400) X10^3/uL Neut % (Auto) Lymph % (Auto) [place] % (Auto) Eos % (Auto) Baso % (Auto) Neut # (Auto) (3376-4955) /uL Lymph # (Auto) [place] # (Auto) Eos # (Auto) (0-450) /uL Baso # (Auto) Total Counted Seg Neutrophils % (38-70) % Band Neutrophils % (3-7) % Lymphocytes % (Manual) (25-45) % Atypical Lymphs % ( - 0) % Monocytes % (Manual) (2-11) % Neutrophils # (Manual) (0062-7437) /uL Smudge Cells RBC Morphology Hypochromasia Poikilocytosis Anisocytosis Tear Drop Cells Ovalocytes [place] Cells Smear Path Review PT (10.1-12.7) SECONDS INR (0.9-1.3) APTT 31 (26-36) SECONDS ABG pH 6.99 L* (7.35-7.45) ABG pCO2 48.4 H (35-45) mmHg ABG pO2 99 (80-100) mmHg ABG HCO3 12 L (23-27) mmol/L ABG Total CO2 13 L (23-27) mmol/L ABG O2 Saturation 93 L (95-100) % ABG Base Excess -20.0 L (-2-3) mmol/L FiO2 100 Sodium (137-145) mmol/L Potassium (3.4-5.1) mmol/L Chloride (98-107) mmol/L Carbon Dioxide (22-32) mmol/L BUN (9-20) mg/dL Creatinine (0.66-1.25) mg/dL Estimated GFR (>60) mL/min BUN/Creatinine Ratio (6-22) Glucose (80-110) mg/dL Lactate (0.7-2.1) mmol/L Calcium (8.4-10.2) mg/dL Phosphorus (2.3-3.7) mg/dL Magnesium (1.6-2.3) mg/dL Total Bilirubin (0.2-1.3) mg/dL AST (17-59) IU/L ALT (<50) IU/L Alkaline Phosphatase (38-126) U/L Total Creatine Kinase (55-170) U/L CK-MB (CK-2) CK-MB (CK-2) Rel Index Troponin I 0.327 H* (0.01-0.034) ng/mL NT-Pro-B Natriuret Pep (<125) pg/mL Total Protein (6.3-8.2) g/dL Albumin (3.5-5.0) g/dL Globulin (1.7-4.1) g/dL Albumin/Globulin Ratio (1.0-2.8) Lipase (23-300) U/L Ketones (<0.27) mmol/L A. baumannii (PCR) (Not Detect) Chlamy pneumoniae PCR (Not Detect) Adenovirus (PCR) (Not Detect) B. pertussis DNA (PCR) (Not Detecte) B.parapertussis DNA PCR (Not Detecte) Claudette albicans (PCR) (Not Detect) C. glabrata (PCR) (Not Detect) C. krusei (PCR) (Not Detect) C. parapsilosis (PCR) (Not Detect) C. tropicalis (PCR) (Not Detect) Coronavirus OC43 (PCR) (Not Detect) Coronavirus HKU1 (PCR) (Not Detect) Coronavirus 229E (PCR) (Not Detect) SARS-CoV-2 (PCR) (Not Detecte) Coronavirus NL63 (PCR) (Not Detect) Enterobacteriac sp PCR (Not Detect) E. cloacae complex PCR (Not Detect) Enterococcus sp PCR (Not Detect) E. coli (PCR) (Not Detect) H. influenzae (PCR) (Not Detect) Human Metapneumovir PCR (Not Detect) Influenza Type A (PCR) (Not Detect) Influenza Type B (PCR) (Not Detect) Klebsiella oxytoca PCR (Not Detect) Klebsiella pneumoniae (Not Detect) List. monocytogenes PCR (Not Detect) M. pneumoniae (PCR) (Not Detect) N. meningitidis (PCR) (Not Detect) Parainfluenza 1 (PCR) (Not Detect) Parainfluenza 2 (PCR) (Not Detect) Parainfluenza 3 (PCR) (Not Detect) Parainfluenza 4 (PCR) (Not Detect) Proteus species (PCR) (Not Detect) RSV (PCR) (Not Detect) Entero/Rhino (PCR) (Not Detect) Serratia marcescens PCR (Not Detect) Staphylococcus sp PCR (Not Detect) Staph aureus (PCR) (Not Detect) mecA-Methicil Res Gene Streptococcus sp PCR (Not Detect) Group A Strep (PCR) (Not Detect) Strep agalactiae (PCR) (Not Detect) Strep pneumoniae (PCR) (Not Detect) P. aeruginosa (PCR) (Not Detect) KPC-Carbap Res Gene PCR Blood Type Antibody Screen Crossmatch 01/10/23 01/10/23 01/10/23 Range/Units 08:10 08:10 08:10 WBC 65.5 H* (4.5-11.0) X10^3/uL RBC 1.09 L (4.5-5.9) X10^6/uL Hgb 2.7 L* (13.5-17.5) g/dL Hct 10.5 L* (41-53) % MCV 96.3 D (80-100) fL MCH 24.5 L (26-34) PG MCHC 25.5 L D (30-36) % RDW 20.1 H (11.6-14.8) % Plt Count 42 L (150-400) X10^3/uL Neut % (Auto) Not Reportable Lymph % (Auto) Not Reportable [place] % (Auto) Not Reportable Eos % (Auto) Not Reportable Baso % (Auto) Not Reportable Neut # (Auto) (1833-9423) /uL Lymph # (Auto) Not Reportable [place] # (Auto) Not Reportable Eos # (Auto) (0-450) /uL Baso # (Auto) Not Reportable Total Counted 100 Seg Neutrophils % 10.0 L (38-70) % Band Neutrophils % 1.0 L (3-7) % Lymphocytes % (Manual) 85.0 H (25-45) % Atypical Lymphs % 2.0 H ( - 0) % Monocytes % (Manual) 2.0 (2-11) % Neutrophils # (Manual) 7205 H (6437-6815) /uL Smudge Cells 3+ H RBC Morphology Not Reportable Hypochromasia Poikilocytosis Anisocytosis Tear Drop Cells Ovalocytes [place] Cells 2+ H Smear Path Review PT (10.1-12.7) SECONDS INR (0.9-1.3) APTT (26-36) SECONDS ABG pH (7.35-7.45) ABG pCO2 (35-45) mmHg ABG pO2 (80-100) mmHg ABG HCO3 (23-27) mmol/L ABG Total CO2 (23-27) mmol/L ABG O2 Saturation (95-100) % ABG Base Excess (-2-3) mmol/L FiO2 Sodium 133 L (137-145) mmol/L Potassium 5.8 H (3.4-5.1) mmol/L Chloride 102 (98-107) mmol/L Carbon Dioxide 13 L (22-32) mmol/L BUN 24 H (9-20) mg/dL Creatinine 1.18 (0.66-1.25) mg/dL Estimated GFR > 60 (>60) mL/min BUN/Creatinine Ratio 20.3 (6-22) Glucose 403 H D (80-110) mg/dL Lactate (0.7-2.1) mmol/L Calcium 7.3 L (8.4-10.2) mg/dL Phosphorus (2.3-3.7) mg/dL Magnesium (1.6-2.3) mg/dL Total Bilirubin 0.9 (0.2-1.3) mg/dL AST 50 (17-59) IU/L ALT 48 (<50) IU/L Alkaline Phosphatase 96 (38-126) U/L Total Creatine Kinase (55-170) U/L CK-MB (CK-2) CK-MB (CK-2) Rel Index Troponin I (0.01-0.034) ng/mL NT-Pro-B Natriuret Pep (<125) pg/mL Total Protein 4.9 L (6.3-8.2) g/dL Albumin 2.8 L (3.5-5.0) g/dL Globulin 2.1 (1.7-4.1) g/dL Albumin/Globulin Ratio 1.3 (1.0-2.8) Lipase (23-300) U/L Ketones (<0.27) mmol/L A. baumannii (PCR) (Not Detect) Chlamy pneumoniae PCR (Not Detect) Adenovirus (PCR) (Not Detect) B. pertussis DNA (PCR) (Not Detecte) B.parapertussis DNA PCR (Not Detecte) Claudette albicans (PCR) (Not Detect) C. glabrata (PCR) (Not Detect) C. krusei (PCR) (Not Detect) C. parapsilosis (PCR) (Not Detect) C. tropicalis (PCR) (Not Detect) Coronavirus OC43 (PCR) (Not Detect) Coronavirus HKU1 (PCR) (Not Detect) Coronavirus 229E (PCR) (Not Detect) SARS-CoV-2 (PCR) (Not Detecte) Coronavirus NL63 (PCR) (Not Detect) Enterobacteriac sp PCR (Not Detect) E. cloacae complex PCR (Not Detect) Enterococcus sp PCR (Not Detect) E. coli (PCR) (Not Detect) H. influenzae (PCR) (Not Detect) Human Metapneumovir PCR (Not Detect) Influenza Type A (PCR) (Not Detect) Influenza Type B (PCR) (Not Detect) Klebsiella oxytoca PCR (Not Detect) Klebsiella pneumoniae (Not Detect) List. monocytogenes PCR (Not Detect) M. pneumoniae (PCR) (Not Detect) N. meningitidis (PCR) (Not Detect) Parainfluenza 1 (PCR) (Not Detect) Parainfluenza 2 (PCR) (Not Detect) Parainfluenza 3 (PCR) (Not Detect) Parainfluenza 4 (PCR) (Not Detect) Proteus species (PCR) (Not Detect) RSV (PCR) (Not Detect) Entero/Rhino (PCR) (Not Detect) Serratia marcescens PCR (Not Detect) Staphylococcus sp PCR (Not Detect) Staph aureus (PCR) (Not Detect) mecA-Methicil Res Gene Streptococcus sp PCR (Not Detect) Group A Strep (PCR) (Not Detect) Strep agalactiae (PCR) (Not Detect) Strep pneumoniae (PCR) (Not Detect) P. aeruginosa (PCR) (Not Detect) KPC-Carbap Res Gene PCR Blood Type A Positive Antibody Screen Negative Crossmatch See Detail 01/10/23 01/10/23 Range/Units 09:12 09:43 WBC 110.0 H* D (4.5-11.0) X10^3/uL RBC 2.68 L (4.5-5.9) X10^6/uL Hgb 6.4 L* (13.5-17.5) g/dL Hct 24.2 L (41-53) % MCV 90.3 D (80-100) fL MCH 24.0 L (26-34) PG MCHC 26.5 L (30-36) % RDW 19.9 H (11.6-14.8) % Plt Count 78 L (150-400) X10^3/uL Neut % (Auto) 7.9 L Lymph % (Auto) 89.6 H [place] % (Auto) 2.4 L Eos % (Auto) 0.0 L Baso % (Auto) 0.1 Neut # (Auto) 8700 H (4568-3997) /uL Lymph # (Auto) 15320 H [place] # (Auto) 2600 H Eos # (Auto) 0 (0-450) /uL Baso # (Auto) 100 Total Counted Seg Neutrophils % (38-70) % Band Neutrophils % (3-7) % Lymphocytes % (Manual) (25-45) % Atypical Lymphs % ( - 0) % Monocytes % (Manual) (2-11) % Neutrophils # (Manual) (8724-7940) /uL Smudge Cells RBC Morphology Hypochromasia Poikilocytosis Anisocytosis Tear Drop Cells Ovalocytes [place] Cells Smear Path Review PT (10.1-12.7) SECONDS INR (0.9-1.3) APTT (26-36) SECONDS ABG pH 7.12 L* (7.35-7.45) ABG pCO2 48.9 H (35-45) mmHg ABG pO2 100 (80-100) mmHg ABG HCO3 16 L (23-27) mmol/L ABG Total CO2 18 L (23-27) mmol/L ABG O2 Saturation 95 (95-100) % ABG Base Excess -13.0 L (-2-3) mmol/L FiO2 100 Sodium (137-145) mmol/L Potassium (3.4-5.1) mmol/L Chloride (98-107) mmol/L Carbon Dioxide (22-32) mmol/L BUN (9-20) mg/dL Creatinine (0.66-1.25) mg/dL Estimated GFR (>60) mL/min BUN/Creatinine Ratio (6-22) Glucose (80-110) mg/dL Lactate (0.7-2.1) mmol/L Calcium (8.4-10.2) mg/dL Phosphorus (2.3-3.7) mg/dL Magnesium (1.6-2.3) mg/dL Total Bilirubin (0.2-1.3) mg/dL AST (17-59) IU/L ALT (<50) IU/L Alkaline Phosphatase (38-126) U/L Total Creatine Kinase (55-170) U/L CK-MB (CK-2) CK-MB (CK-2) Rel Index Troponin I (0.01-0.034) ng/mL NT-Pro-B Natriuret Pep (<125) pg/mL Total Protein (6.3-8.2) g/dL Albumin (3.5-5.0) g/dL Globulin (1.7-4.1) g/dL Albumin/Globulin Ratio (1.0-2.8) Lipase (23-300) U/L Ketones (<0.27) mmol/L A. baumannii (PCR) (Not Detect) Chlamy pneumoniae PCR (Not Detect) Adenovirus (PCR) (Not Detect) B. pertussis DNA (PCR) (Not Detecte) B.parapertussis DNA PCR (Not Detecte) Claudette albicans (PCR) (Not Detect) C. glabrata (PCR) (Not Detect) C. krusei (PCR) (Not Detect) C. parapsilosis (PCR) (Not Detect) C. tropicalis (PCR) (Not Detect) Coronavirus OC43 (PCR) (Not Detect) Coronavirus HKU1 (PCR) (Not Detect) Coronavirus 229E (PCR) (Not Detect) SARS-CoV-2 (PCR) (Not Detecte) Coronavirus NL63 (PCR) (Not Detect) Enterobacteriac sp PCR (Not Detect) E. cloacae complex PCR (Not Detect) Enterococcus sp PCR (Not Detect) E. coli (PCR) (Not Detect) H. influenzae (PCR) (Not Detect) Human Metapneumovir PCR (Not Detect) Influenza Type A (PCR) (Not Detect) Influenza Type B (PCR) (Not Detect) Klebsiella oxytoca PCR (Not Detect) Klebsiella pneumoniae (Not Detect) List. monocytogenes PCR (Not Detect) M. pneumoniae (PCR) (Not Detect) N. meningitidis (PCR) (Not Detect) Parainfluenza 1 (PCR) (Not Detect) Parainfluenza 2 (PCR) (Not Detect) Parainfluenza 3 (PCR) (Not Detect) Parainfluenza 4 (PCR) (Not Detect) Proteus species (PCR) (Not Detect) RSV (PCR) (Not Detect) Entero/Rhino (PCR) (Not Detect) Serratia marcescens PCR (Not Detect) Staphylococcus sp PCR (Not Detect) Staph aureus (PCR) (Not Detect) mecA-Methicil Res Gene Streptococcus sp PCR (Not Detect) Group A Strep (PCR) (Not Detect) Strep agalactiae (PCR) (Not Detect) Strep pneumoniae (PCR) (Not Detect) P. aeruginosa (PCR) (Not Detect) KPC-Carbap Res Gene PCR Blood Type Antibody Screen Crossmatch Point of Care Testing Glucose POC 331 Point of care testing: Point of Care Testing Glucose POC 331 Imaging Data Chest x-ray: Radiologist's Impression: PROCEDURE:? XR CHEST 1V ? INDICATIONS:? SOB ? TECHNIQUE:? One view of the chest was acquired.? ? COMPARISON:? None. ? FINDINGS:? ? Surgical changes and devices:? None.? ? Lungs and pleura:? Left lower lobe infiltrate suspicious for pneumonia.? No pleural effusions or pneumothorax.? ? Mediastinum:? Mediastinal contours appear normal.? Heart size is mildly increased.? ? Bones and chest wall:? No suspicious bony lesions.? Overlying soft tissues appear unremarkable.? ? IMPRESSION:? Left lower lobe pneumonia. CT scan - chest: Radiologist's Impression: PROCEDURE:? CT ANGIO CHEST PE PROTOCOL ? INDICATIONS:? eval for PE ? TECHNIQUE:? After the administration of intravenous contrast, 2 mm thick sections acquired from the pulmonary apices to the posterior costophrenic angles.? 3-dimensional maximum intensity projection (MIP) coronal and sagittal reformats were then acquired through the thorax.? For radiation dose reduction, the following was used:? automated exposure control, adjustment of mA and/or kV according to patient size.? ? COMPARISON:? [facility], CR, XR CHEST 1V, 01/09/2023, 19:31. ? FINDINGS:? Image quality:? Excellent.? ? Pulmonary arteries:? Pulmonary arteries demonstrate no intraluminal filling defects to suggest central pulmonary embolism.? There is enlargement of the pulmonary arteries, with the main pulmonary artery measuring up to 4.3 cm suggestive of pulmonary arterial hypertension.? ? Lower Neck: No lymphadenopathy by size criteria. Thyroid:? Visualized thyroid demonstrates no discrete nodules. Axillae:? There are bilateral mildly enlarged axillary and subpectoral lymph nodes.? These include a right axillary node measuring up to 1.5 cm on series 4, image 42. Chest Wall:? Unremarkable.? Bones: Visualized osseous structures demonstrate no suspicious lesions. ? Lungs and Airways:? No acute consolidation.? There is mild dependent atelectasis bilaterally.? Mild interlobular septal thickening is demonstrated bilaterally with scattered indistinct areas of ground-glass opacities suggestive of pulmonary uday ma.? The trachea and central airways are patent. Pleura: No pneumothorax.? There are small bilateral pleural effusions.? ? Heart: Heart size is mildly enlarged.? There is a small pericardial effusion. Thoracic Vessels: The thoracic aorta is normal in size.? Mediastinum and Mirna:? There are multiple mildly enlarged mediastinal lymph nodes including a precarinal node measuring up to 1.6 cm in short axis on series 4, image 59. A claims representative subcarinal node also measures approximately 1.5 cm. Esophagus: No wall thickening. No hiatal hernia. ? Abdomen:? Visualized upper abdomen demonstrates enlargement of the visualized spleen which measures up to 20.0 cm in anteroposterior dimension.? There are mildly enlarged mesenteric and retroperitoneal lymph nodes within the visualized upper abdomen.? A claims representative peripancreatic node measures up to 1.4 cm on series 4, image 173. A claims representative celiac axis node measures up to 1.3 cm on series 4, image 160. ? IMPRESSION:? ? 1. No evidence of pulmonary embolism.? Enlargement of the pulmonary arteries suggestive of pulmonary arterial hypertension. ? 2. Lymphadenopathy demonstrated in the mediastinum, bilateral axilla, and upper abdomen.? Splenomegaly is also demonstrated.? The findings are suggestive of lymphoma.? The differential also includes metastatic disease. ? 3. Small bilateral pleural effusions, pulmonary edema, and cardiomegaly s uggestive of congestive heart failure. ? 4. Small pericardial effusion.? ECG Data Interpretation: Initial EKG Quite a bit of artifact Sinus rhythm Left axis deviation Left bundle-branch block Ventricular rate 87 Repeat EKG Once again quite a bit artifact Left bundle-branch block Rate 116 Repeat EKG Once again quite a bit of artifact Left bundle branch block Rate 118 Repeat EKG Sinus tachycardia Ventricular rate [address] depressions V5 V6 Normal axis Repeat EKG Sinus rhythm First-degree AV block Ventricular rate 89 MT interval Interval 232 Occasional PVCs Left bundle-branch block MDM Narrative Medical decision making narrative: Patient arrived diaphoretic however was been having shortness of breath specific dyspnea on exertion for the past several weeks if not longer. Initially was difficult to obtain an EKG on the patient does he had quite a bit of artifact however there did not appear to be any ST elevations. Troponin elevated. Started on heparin. Was given an aspirin. His BNP was elevated. Chest x-ray initially showed what was concern for left lower lobe pneumonia. He was given Levaquin for this. CT scan of his chest did not specifically talk about a consolidation but was concerning for CHF. Patient does not have any diagnosis of this. I discussed the case with Dr. Iniguez with cardiology. He stated based on his presentation and his low hemoglobin and hematocrit in history of CLL and his elevated BNP that the patient would not be a candidate for an emergent catheterization. According to my discussion with them there was more concern about this being heart failure so he recommended diuresis and echocardiogram. Patient was stable overnight. Was alert oriented. Was sitting at bedside. Did rest. Diuresed approximately 500 cc of urine. Patient then had a sudden onset of was initially a narrow complex tachycardia. Concern for SVT versus ventricular tachycardia. Patient did have respiratory distress during this time. Prior to any specific intervention the fast heart rate resolved. The patient clinically improved. He then had another onset of the same rhythm. He very quickly lost pulses. CPR was performed for approximately 15-20 seconds. Patient then reached up to the individual giving CPR. He was then oriented. Stated that he was not feeling well. Very shortly afterwards the rhythm went back to sinus rhythm. Had a systolic blood pressure greater than 100. Was not in respiratory distress. Clinically improved quite a bit. His color improved. I did discuss the case with Dr. Aggarwal. The rhythm strip and EKGs were sent to him. He evaluated these. He stated that the rhythm appeared to be ventricular tachycardia. Recommended amiodarone. Patient was given 150 mg of amiodarone. Short time later patient had another episode of the tachycardia in the same morphology. Another 150 mg of amiodarone was administered. Amiodarone drip was being prepared. The patient then once again became unresponsive. CPR was administered. The 1st rhythm check patient did not have a pulse. 1 mg of epinephrine was administered and CPR was started. Shortly after the patient started to respond to CPR. CPR was stopped. Both femoral radial and carotid pulses were felt. Heart rate was in the 60s. Patient did not specifically regain consciousness. He had agonal breathing. Patient was intubated. Started on fentanyl and Versed for sedation. Right femoral line placed. Patient was hypotensive. Pressor started. Care turned over to Dr. Agarwal for further evaluation until transfer. I did discuss the events this morning with the patient's son who was coming to the emergency department. Discussed case with Dr Aquino at [facility] ICU. <Scott Agarwal MD - Last Filed: 01/17/23 07:22> Lab Data Labs: Lab Results 01/09/23 01/09/23 01/09/23 Range/Units 19:41 19:57 19:57 WBC 70.4 H* (4.5-11.0) X10^3/uL RBC 3.09 L (4.5-5.9) X10^6/uL Hgb 7.5 L (13.5-17.5) g/dL Hct 25.3 L (41-53) % MCV 82.1 (80-100) fL MCH 24.3 L (26-34) PG MCHC 29.7 L (30-36) % RDW 18.7 H (11.6-14.8) % Plt Count 88 L (150-400) X10^3/uL Neut % (Auto) Not Reportable Lymph % (Auto) Not Reportable [place] % (Auto) Not Reportable Eos % (Auto) Not Reportable Baso % (Auto) Not Reportable Neut # (Auto) (4454-7499) /uL Lymph # (Auto) Not Reportable [place] # (Auto) Not Reportable Eos # (Auto) (0-450) /uL Baso # (Auto) Not Reportable Total Counted 100 Seg Neutrophils % 12.0 L (38-70) % Band Neutrophils % (3-7) % Lymphocytes % (Manual) 84.0 H (25-45) % Atypical Lymphs % 3.0 H ( - 0) % Monocytes % (Manual) 1.0 L (2-11) % Neutrophils # (Manual) 8448 H (7786-1853) /uL Smudge Cells 4+ H RBC Morphology See below Hypochromasia 1+ H Poikilocytosis 3+ H Anisocytosis 1+ H Tear Drop Cells 1+ H Ovalocytes 2+ H [place] Cells Smear Path Review PT (10.1-12.7) SECONDS INR (0.9-1.3) APTT (26-36) SECONDS ABG pH 7.48 H (7.35-7.45) ABG pCO2 28.8 L (35-45) mmHg ABG pO2 66 L (80-100) mmHg ABG HCO3 22 L (23-27) mmol/L ABG Total CO2 22 L (23-27) mmol/L ABG O2 Saturation 95 (95-100) % ABG Base Excess -2.0 (-2-3) mmol/L FiO2 21 Sodium 134 L (137-145) mmol/L Potassium 5.0 (3.4-5.1) mmol/L Chloride 102 (98-107) mmol/L Carbon Dioxide 20 L (22-32) mmol/L BUN 21 H (9-20) mg/dL Creatinine 0.86 (0.66-1.25) mg/dL Estimated GFR > 60 (>60) mL/min BUN/Creatinine Ratio 24.4 H (6-22) Glucose 142 H (80-110) mg/dL Lactate (0.7-2.1) mmol/L Calcium 8.6 (8.4-10.2) mg/dL Phosphorus (2.3-3.7) mg/dL Magnesium (1.6-2.3) mg/dL Total Bilirubin 0.8 (0.2-1.3) mg/dL AST 32 (17-59) IU/L ALT 28 (<50) IU/L Alkaline Phosphatase 129 H (38-126) U/L Total Creatine Kinase < 20 L (55-170) U/L CK-MB (CK-2) TNP CK-MB (CK-2) Rel Index TNP Troponin I 0.135 H* (0.01-0.034) ng/mL NT-Pro-B Natriuret Pep (<125) pg/mL Total Protein 6.3 (6.3-8.2) g/dL Albumin 3.7 (3.5-5.0) g/dL Globulin 2.6 (1.7-4.1) g/dL Albumin/Globulin Ratio 1.4 (1.0-2.8) Lipase 38 (23-300) U/L Ketones (<0.27) mmol/L A. baumannii (PCR) (Not Detect) Chlamy pneumoniae PCR (Not Detect) Adenovirus (PCR) (Not Detect) B. pertussis DNA (PCR) (Not Detecte) B.parapertussis DNA PCR (Not Detecte) Claudette albicans (PCR) (Not Detect) C. glabrata (PCR) (Not Detect) C. krusei (PCR) (Not Detect) C. parapsilosis (PCR) (Not Detect) C. tropicalis (PCR) (Not Detect) Coronavirus OC43 (PCR) (Not Detect) Coronavirus HKU1 (PCR) (Not Detect) Coronavirus 229E (PCR) (Not Detect) SARS-CoV-2 (PCR) (Not Detecte) Coronavirus NL63 (PCR) (Not Detect) Enterobacteriac sp PCR (Not Detect) E. cloacae complex PCR (Not Detect) Enterococcus sp PCR (Not Detect) E. coli (PCR) (Not Detect) H. influenzae (PCR) (Not Detect) Human Metapneumovir PCR (Not Detect) Influenza Type A (PCR) (Not Detect) Influenza Type B (PCR) (Not Detect) Klebsiella oxytoca PCR (Not Detect) Klebsiella pneumoniae (Not Detect) List. monocytogenes PCR (Not Detect) M. pneumoniae (PCR) (Not Detect) N. meningitidis (PCR) (Not Detect) Parainfluenza 1 (PCR) (Not Detect) Parainfluenza 2 (PCR) (Not Detect) Parainfluenza 3 (PCR) (Not Detect) Parainfluenza 4 (PCR) (Not Detect) Proteus species (PCR) (Not Detect) RSV (PCR) (Not Detect) Entero/Rhino (PCR) (Not Detect) Serratia marcescens PCR (Not Detect) Staphylococcus sp PCR (Not Detect) Staph aureus (PCR) (Not Detect) mecA-Methicil Res Gene Streptococcus sp PCR (Not Detect) Group A Strep (PCR) (Not Detect) Strep agalactiae (PCR) (Not Detect) Strep pneumoniae (PCR) (Not Detect) P. aeruginosa (PCR) (Not Detect) KPC-Carbap Res Gene PCR Blood Type Antibody Screen Crossmatch 01/09/23 01/09/23 01/09/23 Range/Units 19:57 19:57 19:57 WBC (4.5-11.0) X10^3/uL RBC (4.5-5.9) X10^6/uL Hgb (13.5-17.5) g/dL Hct (41-53) % MCV (80-100) fL MCH (26-34) PG MCHC (30-36) % RDW (11.6-14.8) % Plt Count (150-400) X10^3/uL Neut % (Auto) Lymph % (Auto) [place] % (Auto) Eos % (Auto) Baso % (Auto) Neut # (Auto) (5421-4363) /uL Lymph # (Auto) [place] # (Auto) Eos # (Auto) (0-450) /uL Baso # (Auto) Total Counted Seg Neutrophils % (38-70) % Band Neutrophils % (3-7) % Lymphocytes % (Manual) (25-45) % Atypical Lymphs % ( - 0) % Monocytes % (Manual) (2-11) % Neutrophils # (Manual) (6749-2352) /uL Smudge Cells RBC Morphology Hypochromasia Poikilocytosis Anisocytosis Tear Drop Cells Ovalocytes [place] Cells Smear Path Review PT (10.1-12.7) SECONDS INR (0.9-1.3) APTT (26-36) SECONDS ABG pH (7.35-7.45) ABG pCO2 (35-45) mmHg ABG pO2 (80-100) mmHg ABG HCO3 (23-27) mmol/L ABG Total CO2 (23-27) mmol/L ABG O2 Saturation (95-100) % ABG Base Excess (-2-3) mmol/L FiO2 Sodium (137-145) mmol/L Potassium (3.4-5.1) mmol/L Chloride (98-107) mmol/L Carbon Dioxide (22-32) mmol/L BUN (9-20) mg/dL Creatinine (0.66-1.25) mg/dL Estimated GFR (>60) mL/min BUN/Creatinine Ratio (6-22) Glucose (80-110) mg/dL Lactate 1.2 (0.7-2.1) mmol/L Calcium (8.4-10.2) mg/dL Phosphorus 4.3 H (2.3-3.7) mg/dL Magnesium 2.2 (1.6-2.3) mg/dL Total Bilirubin (0.2-1.3) mg/dL AST (17-59) IU/L ALT (<50) IU/L Alkaline Phosphatase (38-126) U/L Total Creatine Kinase (55-170) U/L CK-MB (CK-2) CK-MB (CK-2) Rel Index Troponin I (0.01-0.034) ng/mL NT-Pro-B Natriuret Pep 6590 H (<125) pg/mL Total Protein (6.3-8.2) g/dL Albumin (3.5-5.0) g/dL Globulin (1.7-4.1) g/dL Albumin/Globulin Ratio (1.0-2.8) Lipase (23-300) U/L Ketones 0.87 H (<0.27) mmol/L A. baumannii (PCR) (Not Detect) Chlamy pneumoniae PCR (Not Detect) Adenovirus (PCR) (Not Detect) B. pertussis DNA (PCR) (Not Detecte) B.parapertussis DNA PCR (Not Detecte) Claudette albicans (PCR) (Not Detect) C. glabrata (PCR) (Not Detect) C. krusei (PCR) (Not Detect) C. parapsilosis (PCR) (Not Detect) C. tropicalis (PCR) (Not Detect) Coronavirus OC43 (PCR) (Not Detect) Coronavirus HKU1 (PCR) (Not Detect) Coronavirus 229E (PCR) (Not Detect) SARS-CoV-2 (PCR) (Not Detecte) Coronavirus NL63 (PCR) (Not Detect) Enterobacteriac sp PCR (Not Detect) E. cloacae complex PCR (Not Detect) Enterococcus sp PCR (Not Detect) E. coli (PCR) (Not Detect) H. influenzae (PCR) (Not Detect) Human Metapneumovir PCR (Not Detect) Influenza Type A (PCR) (Not Detect) Influenza Type B (PCR) (Not Detect) Klebsiella oxytoca PCR (Not Detect) Klebsiella pneumoniae (Not Detect) List. monocytogenes PCR (Not Detect) M. pneumoniae (PCR) (Not Detect) N. meningitidis (PCR) (Not Detect) Parainfluenza 1 (PCR) (Not Detect) Parainfluenza 2 (PCR) (Not Detect) Parainfluenza 3 (PCR) (Not Detect) Parainfluenza 4 (PCR) (Not Detect) Proteus species (PCR) (Not Detect) RSV (PCR) (Not Detect) Entero/Rhino (PCR) (Not Detect) Serratia marcescens PCR (Not Detect) Staphylococcus sp PCR (Not Detect) Staph aureus (PCR) (Not Detect) mecA-Methicil Res Gene Streptococcus sp PCR (Not Detect) Group A Strep (PCR) (Not Detect) Strep agalactiae (PCR) (Not Detect) Strep pneumoniae (PCR) (Not Detect) P. aeruginosa (PCR) (Not Detect) KPC-Carbap Res Gene PCR Blood Type Antibody Screen Crossmatch 01/09/23 01/09/23 01/09/23 Range/Units 19:57 19:57 19:57 WBC (4.5-11.0) X10^3/uL RBC (4.5-5.9) X10^6/uL Hgb (13.5-17.5) g/dL Hct (41-53) % MCV (80-100) fL MCH (26-34) PG MCHC (30-36) % RDW (11.6-14.8) % Plt Count (150-400) X10^3/uL Neut % (Auto) Lymph % (Auto) [place] % (Auto) Eos % (Auto) Baso % (Auto) Neut # (Auto) (0374-4804) /uL Lymph # (Auto) [place] # (Auto) Eos # (Auto) (0-450) /uL Baso # (Auto) Total Counted Seg Neutrophils % (38-70) % Band Neutrophils % (3-7) % Lymphocytes % (Manual) (25-45) % Atypical Lymphs % ( - 0) % Monocytes % (Manual) (2-11) % Neutrophils # (Manual) (1569-4062) /uL Smudge Cells RBC Morphology Hypochromasia Poikilocytosis Anisocytosis Tear Drop Cells Ovalocytes [place]it Cells Smear Path Review PT 15.7 H (10.1-12.7) SECONDS INR 1.4 H (0.9-1.3) APTT 29 (26-36) SECONDS ABG pH (7.35-7.45) ABG pCO2 (35-45) mmHg ABG pO2 (80-100) mmHg ABG HCO3 (23-27) mmol/L ABG Total CO2 (23-27) mmol/L ABG O2 Saturation (95-100) % ABG Base Excess (-2-3) mmol/L FiO2 Sodium (137-145) mmol/L Potassium (3.4-5.1) mmol/L Chloride (98-107) mmol/L Carbon Dioxide (22-32) mmol/L BUN (9-20) mg/dL Creatinine (0.66-1.25) mg/dL Estimated GFR (>60) mL/min BUN/Creatinine Ratio (6-22) Glucose (80-110) mg/dL Lactate (0.7-2.1) mmol/L Calcium (8.4-10.2) mg/dL Phosphorus (2.3-3.7) mg/dL Magnesium (1.6-2.3) mg/dL Total Bilirubin (0.2-1.3) mg/dL AST (17-59) IU/L ALT (<50) IU/L Alkaline Phosphatase (38-126) U/L Total Creatine Kinase (55-170) U/L CK-MB (CK-2) CK-MB (CK-2) Rel Index Troponin I (0.01-0.034) ng/mL NT-Pro-B Natriuret Pep (<125) pg/mL Total Protein (6.3-8.2) g/dL Albumin (3.5-5.0) g/dL Globulin (1.7-4.1) g/dL Albumin/Globulin Ratio (1.0-2.8) Lipase (23-300) U/L Ketones (<0.27) mmol/L A. baumannii (PCR) Not detected (Not Detect) Chlamy pneumoniae PCR (Not Detect) Adenovirus (PCR) (Not Detect) B. pertussis DNA (PCR) (Not Detecte) B.parapertussis DNA PCR (Not Detecte) Claudette albicans (PCR) Not detected (Not Detect) C. glabrata (PCR) Not detected (Not Detect) C. krusei (PCR) Not detected (Not Detect) C. parapsilosis (PCR) Not detected (Not Detect) C. tropicalis (PCR) Not detected (Not Detect) Coronavirus OC43 (PCR) (Not Detect) Coronavirus HKU1 (PCR) (Not Detect) Coronavirus 229E (PCR) (Not Detect) SARS-CoV-2 (PCR) (Not Detecte) Coronavirus NL63 (PCR) (Not Detect) Enterobacteriac sp PCR Not detected (Not Detect) E. cloacae complex PCR Not detected (Not Detect) Enterococcus sp PCR Not detected (Not Detect) E. coli (PCR) Not detected (Not Detect) H. influenzae (PCR) Not detected (Not Detect) Human Metapneumovir PCR (Not Detect) Influenza Type A (PCR) (Not Detect) Influenza Type B (PCR) (Not Detect) Klebsiella oxytoca PCR Not detected (Not Detect) Klebsiella pneumoniae Not detected (Not Detect) List. monocytogenes PCR Not detected (Not Detect) M. pneumoniae (PCR) (Not Detect) N. meningitidis (PCR) Not detected (Not Detect) Parainfluenza 1 (PCR) (Not Detect) Parainfluenza 2 (PCR) (Not Detect) Parainfluenza 3 (PCR) (Not Detect) Parainfluenza 4 (PCR) (Not Detect) Proteus species (PCR) Not detected (Not Detect) RSV (PCR) (Not Detect) Entero/Rhino (PCR) (Not Detect) Serratia marcescens PCR Not detected (Not Detect) Staphylococcus sp PCR Not detected (Not Detect) Staph aureus (PCR) Not detected (Not Detect) mecA-Methicil Res Gene Not Reportable Streptococcus sp PCR Detected H (Not Detect) Group A Strep (PCR) Not detected (Not Detect) Strep agalactiae (PCR) Not detected (Not Detect) Strep pneumoniae (PCR) Not detected (Not Detect) P. aeruginosa (PCR) Not detected (Not Detect) KPC-Carbap Res Gene PCR Not Reportable Blood Type Antibody Screen Crossmatch 01/09/23 01/09/23 01/10/23 Range/Units 20:08 22:40 01:55 WBC (4.5-11.0) X10^3/uL RBC (4.5-5.9) X10^6/uL Hgb (13.5-17.5) g/dL Hct (41-53) % MCV (80-100) fL MCH (26-34) PG MCHC (30-36) % RDW (11.6-14.8) % Plt Count (150-400) X10^3/uL Neut % (Auto) Lymph % (Auto) [place] % (Auto) Eos % (Auto) Baso % (Auto) Neut # (Auto) (3391-9535) /uL Lymph # (Auto) [place] # (Auto) Eos # (Auto) (0-450) /uL Baso # (Auto) Total Counted Seg Neutrophils % (38-70) % Band Neutrophils % (3-7) % Lymphocytes % (Manual) (25-45) % Atypical Lymphs % ( - 0) % Monocytes % (Manual) (2-11) % Neutrophils # (Manual) (6876-6258) /uL Smudge Cells RBC Morphology Hypochromasia Poikilocytosis Anisocytosis Tear Drop Cells Ovalocytes Dal[place]it Cells Smear Path Review PT (10.1-12.7) SECONDS INR (0.9-1.3) APTT (26-36) SECONDS ABG pH (7.35-7.45) ABG pCO2 (35-45) mmHg ABG pO2 (80-100) mmHg ABG HCO3 (23-27) mmol/L ABG Total CO2 (23-27) mmol/L ABG O2 Saturation (95-100) % ABG Base Excess (-2-3) mmol/L FiO2 Sodium (137-145) mmol/L Potassium (3.4-5.1) mmol/L Chloride (98-107) mmol/L Carbon Dioxide (22-32) mmol/L BUN (9-20) mg/dL Creatinine (0.66-1.25) mg/dL Estimated GFR (>60) mL/min BUN/Creatinine Ratio (6-22) Glucose (80-110) mg/dL Lactate (0.7-2.1) mmol/L Calcium (8.4-10.2) mg/dL Phosphorus (2.3-3.7) mg/dL Magnesium (1.6-2.3) mg/dL Total Bilirubin (0.2-1.3) mg/dL AST (17-59) IU/L ALT (<50) IU/L Alkaline Phosphatase (38-126) U/L Total Creatine Kinase < 20 L 24 L (55-170) U/L CK-MB (CK-2) TNP TNP CK-MB (CK-2) Rel Index TNP TNP Troponin I 0.346 H* 0.414 H* (0.01-0.034) ng/mL NT-Pro-B Natriuret Pep (<125) pg/mL Total Protein (6.3-8.2) g/dL Albumin (3.5-5.0) g/dL Globulin (1.7-4.1) g/dL Albumin/Globulin Ratio (1.0-2.8) Lipase (23-300) U/L Ketones (<0.27) mmol/L A. baumannii (PCR) (Not Detect) Chlamy pneumoniae PCR Not detected (Not Detect) Adenovirus (PCR) Not detected (Not Detect) B. pertussis DNA (PCR) Not detected (Not Detecte) B.parapertussis DNA PCR Not detected (Not Detecte) Claudette albicans (PCR) (Not Detect) C. glabrata (PCR) (Not Detect) C. krusei (PCR) (Not Detect) C. parapsilosis (PCR) (Not Detect) C. tropicalis (PCR) (Not Detect) Coronavirus OC43 (PCR) Not detected (Not Detect) Coronavirus HKU1 (PCR) Not detected (Not Detect) Coronavirus 229E (PCR) Not detected (Not Detect) SARS-CoV-2 (PCR) Not detected (Not Detecte) Coronavirus NL63 (PCR) Not detected (Not Detect) Enterobacteriac sp PCR (Not Detect) E. cloacae complex PCR (Not Detect) Enterococcus sp PCR (Not Detect) E. coli (PCR) (Not Detect) H. influenzae (PCR) (Not Detect) Human Metapneumovir PCR Not detected (Not Detect) Influenza Type A (PCR) Not detected (Not Detect) Influenza Type B (PCR) Not detected (Not Detect) Klebsiella oxytoca PCR (Not Detect) Klebsiella pneumoniae (Not Detect) List. monocytogenes PCR (Not Detect) M. pneumoniae (PCR) Not detected (Not Detect) N. meningitidis (PCR) (Not Detect) Parainfluenza 1 (PCR) Not detected (Not Detect) Parainfluenza 2 (PCR) Not detected (Not Detect) Parainfluenza 3 (PCR) Not detected (Not Detect) Parainfluenza 4 (PCR) Not detected (Not Detect) Proteus species (PCR) (Not Detect) RSV (PCR) Not detected (Not Detect) Entero/Rhino (PCR) Not detected (Not Detect) Serratia marcescens PCR (Not Detect) Staphylococcus sp PCR (Not Detect) Staph aureus (PCR) (Not Detect) mecA-Methicil Res Gene Streptococcus sp PCR (Not Detect) Group A Strep (PCR) (Not Detect) Strep agalactiae (PCR) (Not Detect) Strep pneumoniae (PCR) (Not Detect) P. aeruginosa (PCR) (Not Detect) KPC-Carbap Res Gene PCR Blood Type Antibody Screen Crossmatch 01/10/23 01/10/23 01/10/23 Range/Units 05:44 05:44 07:45 WBC (4.5-11.0) X10^3/uL RBC (4.5-5.9) X10^6/uL Hgb (13.5-17.5) g/dL Hct (41-53) % MCV (80-100) fL MCH (26-34) PG MCHC (30-36) % RDW (11.6-14.8) % Plt Count (150-400) X10^3/uL Neut % (Auto) Lymph % (Auto) [place] % (Auto) Eos % (Auto) Baso % (Auto) Neut # (Auto) (0677-1697) /uL Lymph # (Auto) [place] # (Auto) Eos # (Auto) (0-450) /uL Baso # (Auto) Total Counted Seg Neutrophils % (38-70) % Band Neutrophils % (3-7) % Lymphocytes % (Manual) (25-45) % Atypical Lymphs % ( - 0) % Monocytes % (Manual) (2-11) % Neutrophils # (Manual) (5775-5497) /uL Smudge Cells RBC Morphology Hypochromasia Poikilocytosis Anisocytosis Tear Drop Cells Ovalocytes [place] Cells Smear Path Review PT (10.1-12.7) SECONDS INR (0.9-1.3) APTT 31 (26-36) SECONDS ABG pH 6.99 L* (7.35-7.45) ABG pCO2 48.4 H (35-45) mmHg ABG pO2 99 (80-100) mmHg ABG HCO3 12 L (23-27) mmol/L ABG Total CO2 13 L (23-27) mmol/L ABG O2 Saturation 93 L (95-100) % ABG Base Excess -20.0 L (-2-3) mmol/L FiO2 100 Sodium (137-145) mmol/L Potassium (3.4-5.1) mmol/L Chloride (98-107) mmol/L Carbon Dioxide (22-32) mmol/L BUN (9-20) mg/dL Creatinine (0.66-1.25) mg/dL Estimated GFR (>60) mL/min BUN/Creatinine Ratio (6-22) Glucose (80-110) mg/dL Lactate (0.7-2.1) mmol/L Calcium (8.4-10.2) mg/dL Phosphorus (2.3-3.7) mg/dL Magnesium (1.6-2.3) mg/dL Total Bilirubin (0.2-1.3) mg/dL AST (17-59) IU/L ALT (<50) IU/L Alkaline Phosphatase (38-126) U/L Total Creatine Kinase (55-170) U/L CK-MB (CK-2) CK-MB (CK-2) Rel Index Troponin I 0.327 H* (0.01-0.034) ng/mL NT-Pro-B Natriuret Pep (<125) pg/mL Total Protein (6.3-8.2) g/dL Albumin (3.5-5.0) g/dL Globulin (1.7-4.1) g/dL Albumin/Globulin Ratio (1.0-2.8) Lipase (23-300) U/L Ketones (<0.27) mmol/L A. baumannii (PCR) (Not Detect) Chlamy pneumoniae PCR (Not Detect) Adenovirus (PCR) (Not Detect) B. pertussis DNA (PCR) (Not Detecte) B.parapertussis DNA PCR (Not Detecte) Claudette albicans (PCR) (Not Detect) C. glabrata (PCR) (Not Detect) C. krusei (PCR) (Not Detect) C. parapsilosis (PCR) (Not Detect) C. tropicalis (PCR) (Not Detect) Coronavirus OC43 (PCR) (Not Detect) Coronavirus HKU1 (PCR) (Not Detect) Coronavirus 229E (PCR) (Not Detect) SARS-CoV-2 (PCR) (Not Detecte) Coronavirus NL63 (PCR) (Not Detect) Enterobacteriac sp PCR (Not Detect) E. cloacae complex PCR (Not Detect) Enterococcus sp PCR (Not Detect) E. coli (PCR) (Not Detect) H. influenzae (PCR) (Not Detect) Human Metapneumovir PCR (Not Detect) Influenza Type A (PCR) (Not Detect) Influenza Type B (PCR) (Not Detect) Klebsiella oxytoca PCR (Not Detect) Klebsiella pneumoniae (Not Detect) List. monocytogenes PCR (Not Detect) M. pneumoniae (PCR) (Not Detect) N. meningitidis (PCR) (Not Detect) Parainfluenza 1 (PCR) (Not Detect) Parainfluenza 2 (PCR) (Not Detect) Parainfluenza 3 (PCR) (Not Detect) Parainfluenza 4 (PCR) (Not Detect) Proteus species (PCR) (Not Detect) RSV (PCR) (Not Detect) Entero/Rhino (PCR) (Not Detect) Serratia marcescens PCR (Not Detect) Staphylococcus sp PCR (Not Detect) Staph aureus (PCR) (Not Detect) mecA-Methicil Res Gene Streptococcus sp PCR (Not Detect) Group A Strep (PCR) (Not Detect) Strep agalactiae (PCR) (Not Detect) Strep pneumoniae (PCR) (Not Detect) P. aeruginosa (PCR) (Not Detect) KPC-Carbap Res Gene PCR Blood Type Antibody Screen Crossmatch 01/10/23 01/10/23 01/10/23 Range/Units 08:10 08:10 08:10 WBC 65.5 H* (4.5-11.0) X10^3/uL RBC 1.09 L (4.5-5.9) X10^6/uL Hgb 2.7 L* (13.5-17.5) g/dL Hct 10.5 L* (41-53) % MCV 96.3 D (80-100) fL MCH 24.5 L (26-34) PG MCHC 25.5 L D (30-36) % RDW 20.1 H (11.6-14.8) % Plt Count 42 L (150-400) X10^3/uL Neut % (Auto) Not Reportable Lymph % (Auto) Not Reportable [place] % (Auto) Not Reportable Eos % (Auto) Not Reportable Baso % (Auto) Not Reportable Neut # (Auto) (7624-5771) /uL Lymph # (Auto) Not Reportable [place] # (Auto) Not Reportable Eos # (Auto) (0-450) /uL Baso # (Auto) Not Reportable Total Counted 100 Seg Neutrophils % 10.0 L (38-70) % Band Neutrophils % 1.0 L (3-7) % Lymphocytes % (Manual) 85.0 H (25-45) % Atypical Lymphs % 2.0 H ( - 0) % Monocytes % (Manual) 2.0 (2-11) % Neutrophils # (Manual) 7205 H (9706-4708) /uL Smudge Cells 3+ H RBC Morphology Not Reportable Hypochromasia Poikilocytosis Anisocytosis Tear Drop Cells Ovalocytes [place] Cells 2+ H Smear Path Review PT (10.1-12.7) SECONDS INR (0.9-1.3) APTT (26-36) SECONDS ABG pH (7.35-7.45) ABG pCO2 (35-45) mmHg ABG pO2 (80-100) mmHg ABG HCO3 (23-27) mmol/L ABG Total CO2 (23-27) mmol/L ABG O2 Saturation (95-100) % ABG Base Excess (-2-3) mmol/L FiO2 Sodium 133 L (137-145) mmol/L Potassium 5.8 H (3.4-5.1) mmol/L Chloride 102 (98-107) mmol/L Carbon Dioxide 13 L (22-32) mmol/L BUN 24 H (9-20) mg/dL Creatinine 1.18 (0.66-1.25) mg/dL Estimated GFR > 60 (>60) mL/min BUN/Creatinine Ratio 20.3 (6-22) Glucose 403 H D (80-110) mg/dL Lactate (0.7-2.1) mmol/L Calcium 7.3 L (8.4-10.2) mg/dL Phosphorus (2.3-3.7) mg/dL Magnesium (1.6-2.3) mg/dL Total Bilirubin 0.9 (0.2-1.3) mg/dL AST 50 (17-59) IU/L ALT 48 (<50) IU/L Alkaline Phosphatase 96 (38-126) U/L Total Creatine Kinase (55-170) U/L CK-MB (CK-2) CK-MB (CK-2) Rel Index Troponin I (0.01-0.034) ng/mL NT-Pro-B Natriuret Pep (<125) pg/mL Total Protein 4.9 L (6.3-8.2) g/dL Albumin 2.8 L (3.5-5.0) g/dL Globulin 2.1 (1.7-4.1) g/dL Albumin/Globulin Ratio 1.3 (1.0-2.8) Lipase (23-300) U/L Ketones (<0.27) mmol/L A. baumannii (PCR) (Not Detect) Chlamy pneumoniae PCR (Not Detect) Adenovirus (PCR) (Not Detect) B. pertussis DNA (PCR) (Not Detecte) B.parapertussis DNA PCR (Not Detecte) Claudette albicans (PCR) (Not Detect) C. glabrata (PCR) (Not Detect) C. krusei (PCR) (Not Detect) C. parapsilosis (PCR) (Not Detect) C. tropicalis (PCR) (Not Detect) Coronavirus OC43 (PCR) (Not Detect) Coronavirus HKU1 (PCR) (Not Detect) Coronavirus 229E (PCR) (Not Detect) SARS-CoV-2 (PCR) (Not Detecte) Coronavirus NL63 (PCR) (Not Detect) Enterobacteriac sp PCR (Not Detect) E. cloacae complex PCR (Not Detect) Enterococcus sp PCR (Not Detect) E. coli (PCR) (Not Detect) H. influenzae (PCR) (Not Detect) Human Metapneumovir PCR (Not Detect) Influenza Type A (PCR) (Not Detect) Influenza Type B (PCR) (Not Detect) Klebsiella oxytoca PCR (Not Detect) Klebsiella pneumoniae (Not Detect) List. monocytogenes PCR (Not Detect) M. pneumoniae (PCR) (Not Detect) N. meningitidis (PCR) (Not Detect) Parainfluenza 1 (PCR) (Not Detect) Parainfluenza 2 (PCR) (Not Detect) Parainfluenza 3 (PCR) (Not Detect) Parainfluenza 4 (PCR) (Not Detect) Proteus species (PCR) (Not Detect) RSV (PCR) (Not Detect) Entero/Rhino (PCR) (Not Detect) Serratia marcescens PCR (Not Detect) Staphylococcus sp PCR (Not Detect) Staph aureus (PCR) (Not Detect) mecA-Methicil Res Gene Streptococcus sp PCR (Not Detect) Group A Strep (PCR) (Not Detect) Strep agalactiae (PCR) (Not Detect) Strep pneumoniae (PCR) (Not Detect) P. aeruginosa (PCR) (Not Detect) KPC-Carbap Res Gene PCR Blood Type A Positive Antibody Screen Negative Crossmatch See Detail 01/10/23 01/10/23 Range/Units 09:12 09:43 WBC 110.0 H* D (4.5-11.0) X10^3/uL RBC 2.68 L (4.5-5.9) X10^6/uL Hgb 6.4 L* (13.5-17.5) g/dL Hct 24.2 L (41-53) % MCV 90.3 D (80-100) fL MCH 24.0 L (26-34) PG MCHC 26.5 L (30-36) % RDW 19.9 H (11.6-14.8) % Plt Count 78 L (150-400) X10^3/uL Neut % (Auto) 7.9 L Lymph % (Auto) 89.6 H [place] % (Auto) 2.4 L Eos % (Auto) 0.0 L Baso % (Auto) 0.1 Neut # (Auto) 8700 H (9707-2244) /uL Lymph # (Auto) 71688 H [place] # (Auto) 2600 H Eos # (Auto) 0 (0-450) /uL Baso # (Auto) 100 Total Counted Seg Neutrophils % (38-70) % Band Neutrophils % (3-7) % Lymphocytes % (Manual) (25-45) % Atypical Lymphs % ( - 0) % Monocytes % (Manual) (2-11) % Neutrophils # (Manual) (8914-1786) /uL Smudge Cells RBC Morphology Hypochromasia Poikilocytosis Anisocytosis Tear Drop Cells Ovalocytes [place]it Cells Smear Path Review PT (10.1-12.7) SECONDS INR (0.9-1.3) APTT (26-36) SECONDS ABG pH 7.12 L* (7.35-7.45) ABG pCO2 48.9 H (35-45) mmHg ABG pO2 100 (80-100) mmHg ABG HCO3 16 L (23-27) mmol/L ABG Total CO2 18 L (23-27) mmol/L ABG O2 Saturation 95 (95-100) % ABG Base Excess -13.0 L (-2-3) mmol/L FiO2 100 Sodium (137-145) mmol/L Potassium (3.4-5.1) mmol/L Chloride (98-107) mmol/L Carbon Dioxide (22-32) mmol/L BUN (9-20) mg/dL Creatinine (0.66-1.25) mg/dL Estimated GFR (>60) mL/min BUN/Creatinine Ratio (6-22) Glucose (80-110) mg/dL Lactate (0.7-2.1) mmol/L Calcium (8.4-10.2) mg/dL Phosphorus (2.3-3.7) mg/dL Magnesium (1.6-2.3) mg/dL Total Bilirubin (0.2-1.3) mg/dL AST (17-59) IU/L ALT (<50) IU/L Alkaline Phosphatase (38-126) U/L Total Creatine Kinase (55-170) U/L CK-MB (CK-2) CK-MB (CK-2) Rel Index Troponin I (0.01-0.034) ng/mL NT-Pro-B Natriuret Pep (<125) pg/mL Total Protein (6.3-8.2) g/dL Albumin (3.5-5.0) g/dL Globulin (1.7-4.1) g/dL Albumin/Globulin Ratio (1.0-2.8) Lipase (23-300) U/L Ketones (<0.27) mmol/L A. baumannii (PCR) (Not Detect) Chlamy pneumoniae PCR (Not Detect) Adenovirus (PCR) (Not Detect) B. pertussis DNA (PCR) (Not Detecte) B.parapertussis DNA PCR (Not Detecte) Claudette albicans (PCR) (Not Detect) C. glabrata (PCR) (Not Detect) C. krusei (PCR) (Not Detect) C. parapsilosis (PCR) (Not Detect) C. tropicalis (PCR) (Not Detect) Coronavirus OC43 (PCR) (Not Detect) Coronavirus HKU1 (PCR) (Not Detect) Coronavirus 229E (PCR) (Not Detect) SARS-CoV-2 (PCR) (Not Detecte) Coronavirus NL63 (PCR) (Not Detect) Enterobacteriac sp PCR (Not Detect) E. cloacae complex PCR (Not Detect) Enterococcus sp PCR (Not Detect) E. coli (PCR) (Not Detect) H. influenzae (PCR) (Not Detect) Human Metapneumovir PCR (Not Detect) Influenza Type A (PCR) (Not Detect) Influenza Type B (PCR) (Not Detect) Klebsiella oxytoca PCR (Not Detect) Klebsiella pneumoniae (Not Detect) List. monocytogenes PCR (Not Detect) M. pneumoniae (PCR) (Not Detect) N. meningitidis (PCR) (Not Detect) Parainfluenza 1 (PCR) (Not Detect) Parainfluenza 2 (PCR) (Not Detect) Parainfluenza 3 (PCR) (Not Detect) Parainfluenza 4 (PCR) (Not Detect) Proteus species (PCR) (Not Detect) RSV (PCR) (Not Detect) Entero/Rhino (PCR) (Not Detect) Serratia marcescens PCR (Not Detect) Staphylococcus sp PCR (Not Detect) Staph aureus (PCR) (Not Detect) mecA-Methicil Res Gene Streptococcus sp PCR (Not Detect) Group A Strep (PCR) (Not Detect) Strep agalactiae (PCR) (Not Detect) Strep pneumoniae (PCR) (Not Detect) P. aeruginosa (PCR) (Not Detect) KPC-Carbap Res Gene PCR Blood Type Antibody Screen Crossmatch Point of Care Testing Glucose POC 331 Point of care testing: Point of Care Testing Glucose POC 331 MDM Narrative Medical decision making narrative: Patient arrived diaphoretic however was been having shortness of breath specific dyspnea on exertion for the past several weeks if not longer. Initially was difficult to obtain an EKG on the patient does he had quite a bit of artifact however there did not appear to be any ST elevations. Troponin elevated. Started on heparin. Was given an aspirin. His BNP was elevated. Chest x-ray initially showed what was concern for left lower lobe pneumonia. He was given Levaquin for this. CT scan of his chest did not specifically talk about a consolidation but was concerning for CHF. Patient does not have any diagnosis of this. I discussed the case with Dr. Iniguez with cardiology. He stated based on his presentation and his low hemoglobin and hematocrit in history of CLL and his elevated BNP that the patient would not be a candidate for an emergent catheterization. According to my discussion with them there was more concern about this being heart failure so he recommended diuresis and echocardiogram. Patient was stable overnight. Was alert oriented. Was sitting at bedside. Did rest. Diuresed approximately 500 cc of urine. Patient then had a sudden onset of was initially a narrow complex tachycardia. Concern for SVT versus ventricular tachycardia. Patient did have respiratory distress during this time. Prior to any specific intervention the fast heart rate resolved. The patient clinically improved. He then had another onset of the same rhythm. He very quickly lost pulses. CPR was performed for approximately 15-20 seconds. Patient then reached up to the individual giving CPR. He was then oriented. Stated that he was not feeling well. Very shortly afterwards the rhythm went back to sinus rhythm. Had a systolic blood pressure greater than 100. Was not in respiratory distress. Clinically improved quite a bit. His color improved. I did discuss the case with Dr. Aggarwal. The rhythm strip and EKGs were sent to him. He evaluated these. He stated that the rhythm appeared to be ventricular tachycardia. Recommended amiodarone. Patient was given 150 mg of amiodarone. Short time later patient had another episode of the tachycardia in the same morphology. Another 150 mg of amiodarone was administered. Amiodarone drip was being prepared. The patient then once again became unresponsive. CPR was administered. The 1st rhythm check patient did not have a pulse. 1 mg of epinephrine was administered and CPR was started. Shortly after the patient started to respond to CPR. CPR was stopped. Both femoral radial and carotid pulses were felt. Heart rate was in the 60s. Patient did not specifically regain consciousness. He had agonal breathing. Patient was intubated. Started on fentanyl and Versed for sedation. Right femoral line placed. Patient was hypotensive. Pressor started. Care turned over to Dr. Agarwal for further evaluation until transfer. I did discuss the events this morning with the patient's son who was coming to the emergency department. Discussed case with Dr Aquino at [facility] ICU. 9:27 a.m.. Patient care has been discussed with [place] ICU by Dr. Santos, peripheral edp equipment operator Will accept pt. patient will be air lifted to [facility]. Son at bedside and is aware of patient condition and need for transfer. Dr Santos has spoken with son. Any BANDA <Lona Rizvi, DO - Last Filed: 01/13/23 10:05> Lab Data Labs: Lab Results 01/09/23 01/09/23 01/09/23 Range/Units 19:41 19:57 19:57 WBC 70.4 H* (4.5-11.0) X10^3/uL RBC 3.09 L (4.5-5.9) X10^6/uL Hgb 7.5 L (13.5-17.5) g/dL Hct 25.3 L (41-53) % MCV 82.1 (80-100) fL MCH 24.3 L (26-34) PG MCHC 29.7 L (30-36) % RDW 18.7 H (11.6-14.8) % Plt Count 88 L (150-400) X10^3/uL Neut % (Auto) Not Reportable Lymph % (Auto) Not Reportable [place] % (Auto) Not Reportable Eos % (Auto) Not Reportable Baso % (Auto) Not Reportable Neut # (Auto) (2973-4833) /uL Lymph # (Auto) Not Reportable [place] # (Auto) Not Reportable Eos # (Auto) (0-450) /uL Baso # (Auto) Not Reportable Total Counted 100 Seg Neutrophils % 12.0 L (38-70) % Band Neutrophils % (3-7) % Lymphocytes % (Manual) 84.0 H (25-45) % Atypical Lymphs % 3.0 H ( - 0) % Monocytes % (Manual) 1.0 L (2-11) % Neutrophils # (Manual) 8448 H (4227-3313) /uL [place] Cells 4+ H RBC Morphology See below Hypochromasia 1+ H Poikilocytosis 3+ H Anisocytosis 1+ H Tear Drop Cells 1+ H Ovalocytes 2+ H [place] Cells Smear Path Review PT (10.1-12.7) SECONDS INR (0.9-1.3) APTT (26-36) SECONDS ABG pH 7.48 H (7.35-7.45) ABG pCO2 28.8 L (35-45) mmHg ABG pO2 66 L (80-100) mmHg ABG HCO3 22 L (23-27) mmol/L ABG Total CO2 22 L (23-27) mmol/L ABG O2 Saturation 95 (95-100) % ABG Base Excess -2.0 (-2-3) mmol/L FiO2 21 Sodium 134 L (137-145) mmol/L Potassium 5.0 (3.4-5.1) mmol/L Chloride 102 (98-107) mmol/L Carbon Dioxide 20 L (22-32) mmol/L BUN 21 H (9-20) mg/dL Creatinine 0.86 (0.66-1.25) mg/dL Estimated GFR > 60 (>60) mL/min BUN/Creatinine Ratio 24.4 H (6-22) Glucose 142 H (80-110) mg/dL Lactate (0.7-2.1) mmol/L Calcium 8.6 (8.4-10.2) mg/dL Phosphorus (2.3-3.7) mg/dL Magnesium (1.6-2.3) mg/dL Total Bilirubin 0.8 (0.2-1.3) mg/dL AST 32 (17-59) IU/L ALT 28 (<50) IU/L Alkaline Phosphatase 129 H (38-126) U/L Total Creatine Kinase < 20 L (55-170) U/L CK-MB (CK-2) TNP CK-MB (CK-2) Rel Index TNP Troponin I 0.135 H* (0.01-0.034) ng/mL NT-Pro-B Natriuret Pep (<125) pg/mL Total Protein 6.3 (6.3-8.2) g/dL Albumin 3.7 (3.5-5.0) g/dL Globulin 2.6 (1.7-4.1) g/dL Albumin/Globulin Ratio 1.4 (1.0-2.8) Lipase 38 (23-300) U/L Ketones (<0.27) mmol/L A. baumannii (PCR) (Not Detect) Chlamy pneumoniae PCR (Not Detect) Adenovirus (PCR) (Not Detect) B. pertussis DNA (PCR) (Not Detecte) B.parapertussis DNA PCR (Not Detecte) Claudette albicans (PCR) (Not Detect) C. glabrata (PCR) (Not Detect) C. krusei (PCR) (Not Detect) C. parapsilosis (PCR) (Not Detect) C. tropicalis (PCR) (Not Detect) Coronavirus OC43 (PCR) (Not Detect) Coronavirus HKU1 (PCR) (Not Detect) Coronavirus 229E (PCR) (Not Detect) SARS-CoV-2 (PCR) (Not Detecte) Coronavirus NL63 (PCR) (Not Detect) Enterobacteriac sp PCR (Not Detect) E. cloacae complex PCR (Not Detect) Enterococcus sp PCR (Not Detect) E. coli (PCR) (Not Detect) H. influenzae (PCR) (Not Detect) Human Metapneumovir PCR (Not Detect) Influenza Type A (PCR) (Not Detect) Influenza Type B (PCR) (Not Detect) Klebsiella oxytoca PCR (Not Detect) Klebsiella pneumoniae (Not Detect) List. monocytogenes PCR (Not Detect) M. pneumoniae (PCR) (Not Detect) N. meningitidis (PCR) (Not Detect) Parainfluenza 1 (PCR) (Not Detect) Parainfluenza 2 (PCR) (Not Detect) Parainfluenza 3 (PCR) (Not Detect) Parainfluenza 4 (PCR) (Not Detect) Proteus species (PCR) (Not Detect) RSV (PCR) (Not Detect) Entero/Rhino (PCR) (Not Detect) Serratia marcescens PCR (Not Detect) Staphylococcus sp PCR (Not Detect) Staph aureus (PCR) (Not Detect) mecA-Methicil Res Gene Streptococcus sp PCR (Not Detect) Group A Strep (PCR) (Not Detect) Strep agalactiae (PCR) (Not Detect) Strep pneumoniae (PCR) (Not Detect) P. aeruginosa (PCR) (Not Detect) KPC-Carbap Res Gene PCR Blood Type Antibody Screen Crossmatch 01/09/23 01/09/23 01/09/23 Range/Units 19:57 19:57 19:57 WBC (4.5-11.0) X10^3/uL RBC (4.5-5.9) X10^6/uL Hgb (13.5-17.5) g/dL Hct (41-53) % MCV (80-100) fL MCH (26-34) PG MCHC (30-36) % RDW (11.6-14.8) % Plt Count (150-400) X10^3/uL Neut % (Auto) Lymph % (Auto) [place] % (Auto) Eos % (Auto) Baso % (Auto) Neut # (Auto) (8636-5853) /uL Lymph # (Auto) [place] # (Auto) Eos # (Auto) (0-450) /uL Baso # (Auto) Total Counted Seg Neutrophils % (38-70) % Band Neutrophils % (3-7) % Lymphocytes % (Manual) (25-45) % Atypical Lymphs % ( - 0) % Monocytes % (Manual) (2-11) % Neutrophils # (Manual) (3976-7251) /uL [place]udge Cells RBC Morphology Hypochromasia Poikilocytosis Anisocytosis Tear Drop Cells Ovalocytes [place] Cells Smear Path Review PT (10.1-12.7) SECONDS INR (0.9-1.3) APTT (26-36) SECONDS ABG pH (7.35-7.45) ABG pCO2 (35-45) mmHg ABG pO2 (80-100) mmHg ABG HCO3 (23-27) mmol/L ABG Total CO2 (23-27) mmol/L ABG O2 Saturation (95-100) % ABG Base Excess (-2-3) mmol/L FiO2 Sodium (137-145) mmol/L Potassium (3.4-5.1) mmol/L Chloride (98-107) mmol/L Carbon Dioxide (22-32) mmol/L BUN (9-20) mg/dL Creatinine (0.66-1.25) mg/dL Estimated GFR (>60) mL/min BUN/Creatinine Ratio (6-22) Glucose (80-110) mg/dL Lactate 1.2 (0.7-2.1) mmol/L Calcium (8.4-10.2) mg/dL Phosphorus 4.3 H (2.3-3.7) mg/dL Magnesium 2.2 (1.6-2.3) mg/dL Total Bilirubin (0.2-1.3) mg/dL AST (17-59) IU/L ALT (<50) IU/L Alkaline Phosphatase (38-126) U/L Total Creatine Kinase (55-170) U/L CK-MB (CK-2) CK-MB (CK-2) Rel Index Troponin I (0.01-0.034) ng/mL NT-Pro-B Natriuret Pep 6590 H (<125) pg/mL Total Protein (6.3-8.2) g/dL Albumin (3.5-5.0) g/dL Globulin (1.7-4.1) g/dL Albumin/Globulin Ratio (1.0-2.8) Lipase (23-300) U/L Ketones 0.87 H (<0.27) mmol/L A. baumannii (PCR) (Not Detect) Chlamy pneumoniae PCR (Not Detect) Adenovirus (PCR) (Not Detect) B. pertussis DNA (PCR) (Not Detecte) B.parapertussis DNA PCR (Not Detecte) Claudette albicans (PCR) (Not Detect) C. glabrata (PCR) (Not Detect) C. krusei (PCR) (Not Detect) C. parapsilosis (PCR) (Not Detect) C. tropicalis (PCR) (Not Detect) Coronavirus OC43 (PCR) (Not Detect) Coronavirus HKU1 (PCR) (Not Detect) Coronavirus 229E (PCR) (Not Detect) SARS-CoV-2 (PCR) (Not Detecte) Coronavirus NL63 (PCR) (Not Detect) Enterobacteriac sp PCR (Not Detect) E. cloacae complex PCR (Not Detect) Enterococcus sp PCR (Not Detect) E. coli (PCR) (Not Detect) H. influenzae (PCR) (Not Detect) Human Metapneumovir PCR (Not Detect) Influenza Type A (PCR) (Not Detect) Influenza Type B (PCR) (Not Detect) Klebsiella oxytoca PCR (Not Detect) Klebsiella pneumoniae (Not Detect) List. monocytogenes PCR (Not Detect) M. pneumoniae (PCR) (Not Detect) N. meningitidis (PCR) (Not Detect) Parainfluenza 1 (PCR) (Not Detect) Parainfluenza 2 (PCR) (Not Detect) Parainfluenza 3 (PCR) (Not Detect) Parainfluenza 4 (PCR) (Not Detect) Proteus species (PCR) (Not Detect) RSV (PCR) (Not Detect) Entero/Rhino (PCR) (Not Detect) Serratia marcescens PCR (Not Detect) Staphylococcus sp PCR (Not Detect) Staph aureus (PCR) (Not Detect) mecA-Methicil Res Gene Streptococcus sp PCR (Not Detect) Group A Strep (PCR) (Not Detect) Strep agalactiae (PCR) (Not Detect) Strep pneumoniae (PCR) (Not Detect) P. aeruginosa (PCR) (Not Detect) KPC-Carbap Res Gene PCR Blood Type Antibody Screen Crossmatch 01/09/23 01/09/23 01/09/23 Range/Units 19:57 19:57 19:57 WBC (4.5-11.0) X10^3/uL RBC (4.5-5.9) X10^6/uL Hgb (13.5-17.5) g/dL Hct (41-53) % MCV (80-100) fL MCH (26-34) PG MCHC (30-36) % RDW (11.6-14.8) % Plt Count (150-400) X10^3/uL Neut % (Auto) Lymph % (Auto) [place] % (Auto) Eos % (Auto) Baso % (Auto) Neut # (Auto) (1295-5300) /uL Lymph # (Auto) [place] # (Auto) Eos # (Auto) (0-450) /uL Baso # (Auto) Total Counted Seg Neutrophils % (38-70) % Band Neutrophils % (3-7) % Lymphocytes % (Manual) (25-45) % Atypical Lymphs % ( - 0) % Monocytes % (Manual) (2-11) % Neutrophils # (Manual) (4302-4207) /uL Smudge Cells RBC Morphology Hypochromasia Poikilocytosis Anisocytosis Tear Drop Cells Ovalocytes [place] Cells Smear Path Review PT 15.7 H (10.1-12.7) SECONDS INR 1.4 H (0.9-1.3) APTT 29 (26-36) SECONDS ABG pH (7.35-7.45) ABG pCO2 (35-45) mmHg ABG pO2 (80-100) mmHg ABG HCO3 (23-27) mmol/L ABG Total CO2 (23-27) mmol/L ABG O2 Saturation (95-100) % ABG Base Excess (-2-3) mmol/L FiO2 Sodium (137-145) mmol/L Potassium (3.4-5.1) mmol/L Chloride (98-107) mmol/L Carbon Dioxide (22-32) mmol/L BUN (9-20) mg/dL Creatinine (0.66-1.25) mg/dL Estimated GFR (>60) mL/min BUN/Creatinine Ratio (6-22) Glucose (80-110) mg/dL Lactate (0.7-2.1) mmol/L Calcium (8.4-10.2) mg/dL Phosphorus (2.3-3.7) mg/dL Magnesium (1.6-2.3) mg/dL Total Bilirubin (0.2-1.3) mg/dL AST (17-59) IU/L ALT (<50) IU/L Alkaline Phosphatase (38-126) U/L Total Creatine Kinase (55-170) U/L CK-MB (CK-2) CK-MB (CK-2) Rel Index Troponin I (0.01-0.034) ng/mL NT-Pro-B Natriuret Pep (<125) pg/mL Total Protein (6.3-8.2) g/dL Albumin (3.5-5.0) g/dL Globulin (1.7-4.1) g/dL Albumin/Globulin Ratio (1.0-2.8) Lipase (23-300) U/L Ketones (<0.27) mmol/L A. baumannii (PCR) Not detected (Not Detect) Chlamy pneumoniae PCR (Not Detect) Adenovirus (PCR) (Not Detect) B. pertussis DNA (PCR) (Not Detecte) B.parapertussis DNA PCR (Not Detecte) Claudette albicans (PCR) Not detected (Not Detect) C. glabrata (PCR) Not detected (Not Detect) C. krusei (PCR) Not detected (Not Detect) C. parapsilosis (PCR) Not detected (Not Detect) C. tropicalis (PCR) Not detected (Not Detect) Coronavirus OC43 (PCR) (Not Detect) Coronavirus HKU1 (PCR) (Not Detect) Coronavirus 229E (PCR) (Not Detect) SARS-CoV-2 (PCR) (Not Detecte) Coronavirus NL63 (PCR) (Not Detect) Enterobacteriac sp PCR Not detected (Not Detect) E. cloacae complex PCR Not detected (Not Detect) Enterococcus sp PCR Not detected (Not Detect) E. coli (PCR) Not detected (Not Detect) H. influenzae (PCR) Not detected (Not Detect) Human Metapneumovir PCR (Not Detect) Influenza Type A (PCR) (Not Detect) Influenza Type B (PCR) (Not Detect) Klebsiella oxytoca PCR Not detected (Not Detect) Klebsiella pneumoniae Not detected (Not Detect) List. monocytogenes PCR Not detected (Not Detect) M. pneumoniae (PCR) (Not Detect) N. meningitidis (PCR) Not detected (Not Detect) Parainfluenza 1 (PCR) (Not Detect) Parainfluenza 2 (PCR) (Not Detect) Parainfluenza 3 (PCR) (Not Detect) Parainfluenza 4 (PCR) (Not Detect) Proteus species (PCR) Not detected (Not Detect) RSV (PCR) (Not Detect) Entero/Rhino (PCR) (Not Detect) Serratia marcescens PCR Not detected (Not Detect) Staphylococcus sp PCR Not detected (Not Detect) Staph aureus (PCR) Not detected (Not Detect) mecA-Methicil Res Gene Not Reportable Streptococcus sp PCR Detected H (Not Detect) Group A Strep (PCR) Not detected (Not Detect) Strep agalactiae (PCR) Not detected (Not Detect) Strep pneumoniae (PCR) Not detected (Not Detect) P. aeruginosa (PCR) Not detected (Not Detect) KPC-Carbap Res Gene PCR Not Reportable Blood Type Antibody Screen Crossmatch 01/09/23 01/09/23 01/10/23 Range/Units 20:08 22:40 01:55 WBC (4.5-11.0) X10^3/uL RBC (4.5-5.9) X10^6/uL Hgb (13.5-17.5) g/dL Hct (41-53) % MCV (80-100) fL MCH (26-34) PG MCHC (30-36) % RDW (11.6-14.8) % Plt Count (150-400) X10^3/uL Neut % (Auto) Lymph % (Auto) [place] % (Auto) Eos % (Auto) Baso % (Auto) Neut # (Auto) (6673-7600) /uL Lymph # (Auto) [place] # (Auto) Eos # (Auto) (0-450) /uL Baso # (Auto) Total Counted Seg Neutrophils % (38-70) % Band Neutrophils % (3-7) % Lymphocytes % (Manual) (25-45) % Atypical Lymphs % ( - 0) % Monocytes % (Manual) (2-11) % Neutrophils # (Manual) (2128-7659) /uL Smudge Cells RBC Morphology Hypochromasia Poikilocytosis Anisocytosis Tear Drop Cells Ovalocytes Daljit Cells Smear Path Review PT (10.1-12.7) SECONDS INR (0.9-1.3) APTT (26-36) SECONDS ABG pH (7.35-7.45) ABG pCO2 (35-45) mmHg ABG pO2 (80-100) mmHg ABG HCO3 (23-27) mmol/L ABG Total CO2 (23-27) mmol/L ABG O2 Saturation (95-100) % ABG Base Excess (-2-3) mmol/L FiO2 Sodium (137-145) mmol/L Potassium (3.4-5.1) mmol/L Chloride (98-107) mmol/L Carbon Dioxide (22-32) mmol/L BUN (9-20) mg/dL Creatinine (0.66-1.25) mg/dL Estimated GFR (>60) mL/min BUN/Creatinine Ratio (6-22) Glucose (80-110) mg/dL Lactate (0.7-2.1) mmol/L Calcium (8.4-10.2) mg/dL Phosphorus (2.3-3.7) mg/dL Magnesium (1.6-2.3) mg/dL Total Bilirubin (0.2-1.3) mg/dL AST (17-59) IU/L ALT (<50) IU/L Alkaline Phosphatase (38-126) U/L Total Creatine Kinase < 20 L 24 L (55-170) U/L CK-MB (CK-2) TNP TNP CK-MB (CK-2) Rel Index TNP TNP Troponin I 0.346 H* 0.414 H* (0.01-0.034) ng/mL NT-Pro-B Natriuret Pep (<125) pg/mL Total Protein (6.3-8.2) g/dL Albumin (3.5-5.0) g/dL Globulin (1.7-4.1) g/dL Albumin/Globulin Ratio (1.0-2.8) Lipase (23-300) U/L Ketones (<0.27) mmol/L A. baumannii (PCR) (Not Detect) Chlamy pneumoniae PCR Not detected (Not Detect) Adenovirus (PCR) Not detected (Not Detect) B. pertussis DNA (PCR) Not detected (Not Detecte) B.parapertussis DNA PCR Not detected (Not Detecte) Claudette albicans (PCR) (Not Detect) C. glabrata (PCR) (Not Detect) C. krusei (PCR) (Not Detect) C. parapsilosis (PCR) (Not Detect) C. tropicalis (PCR) (Not Detect) Coronavirus OC43 (PCR) Not detected (Not Detect) Coronavirus HKU1 (PCR) Not detected (Not Detect) Coronavirus 229E (PCR) Not detected (Not Detect) SARS-CoV-2 (PCR) Not detected (Not Detecte) Coronavirus NL63 (PCR) Not detected (Not Detect) Enterobacteriac sp PCR (Not Detect) E. cloacae complex PCR (Not Detect) Enterococcus sp PCR (Not Detect) E. coli (PCR) (Not Detect) H. influenzae (PCR) (Not Detect) Human Metapneumovir PCR Not detected (Not Detect) Influenza Type A (PCR) Not detected (Not Detect) Influenza Type B (PCR) Not detected (Not Detect) Klebsiella oxytoca PCR (Not Detect) Klebsiella pneumoniae (Not Detect) List. monocytogenes PCR (Not Detect) M. pneumoniae (PCR) Not detected (Not Detect) N. meningitidis (PCR) (Not Detect) Parainfluenza 1 (PCR) Not detected (Not Detect) Parainfluenza 2 (PCR) Not detected (Not Detect) Parainfluenza 3 (PCR) Not detected (Not Detect) Parainfluenza 4 (PCR) Not detected (Not Detect) Proteus species (PCR) (Not Detect) RSV (PCR) Not detected (Not Detect) Entero/Rhino (PCR) Not detected (Not Detect) Serratia marcescens PCR (Not Detect) Staphylococcus sp PCR (Not Detect) Staph aureus (PCR) (Not Detect) mecA-Methicil Res Gene Streptococcus sp PCR (Not Detect) Group A Strep (PCR) (Not Detect) Strep agalactiae (PCR) (Not Detect) Strep pneumoniae (PCR) (Not Detect) P. aeruginosa (PCR) (Not Detect) KPC-Carbap Res Gene PCR Blood Type Antibody Screen Crossmatch 01/10/23 01/10/23 01/10/23 Range/Units 05:44 05:44 07:45 WBC (4.5-11.0) X10^3/uL RBC (4.5-5.9) X10^6/uL Hgb (13.5-17.5) g/dL Hct (41-53) % MCV (80-100) fL MCH (26-34) PG MCHC (30-36) % RDW (11.6-14.8) % Plt Count (150-400) X10^3/uL Neut % (Auto) Lymph % (Auto) [place] % (Auto) Eos % (Auto) Baso % (Auto) Neut # (Auto) (7634-9259) /uL Lymph # (Auto) [place] # (Auto) Eos # (Auto) (0-450) /uL Baso # (Auto) Total Counted Seg Neutrophils % (38-70) % Band Neutrophils % (3-7) % Lymphocytes % (Manual) (25-45) % Atypical Lymphs % ( - 0) % Monocytes % (Manual) (2-11) % Neutrophils # (Manual) (9239-0506) /uL Smudge Cells RBC Morphology Hypochromasia Poikilocytosis Anisocytosis Tear Drop Cells Ovalocytes [place] Cells Smear Path Review PT (10.1-12.7) SECONDS INR (0.9-1.3) APTT 31 (26-36) SECONDS ABG pH 6.99 L* (7.35-7.45) ABG pCO2 48.4 H (35-45) mmHg ABG pO2 99 (80-100) mmHg ABG HCO3 12 L (23-27) mmol/L ABG Total CO2 13 L (23-27) mmol/L ABG O2 Saturation 93 L (95-100) % ABG Base Excess -20.0 L (-2-3) mmol/L FiO2 100 Sodium (137-145) mmol/L Potassium (3.4-5.1) mmol/L Chloride (98-107) mmol/L Carbon Dioxide (22-32) mmol/L BUN (9-20) mg/dL Creatinine (0.66-1.25) mg/dL Estimated GFR (>60) mL/min BUN/Creatinine Ratio (6-22) Glucose (80-110) mg/dL Lactate (0.7-2.1) mmol/L Calcium (8.4-10.2) mg/dL Phosphorus (2.3-3.7) mg/dL Magnesium (1.6-2.3) mg/dL Total Bilirubin (0.2-1.3) mg/dL AST (17-59) IU/L ALT (<50) IU/L Alkaline Phosphatase (38-126) U/L Total Creatine Kinase (55-170) U/L CK-MB (CK-2) CK-MB (CK-2) Rel Index Troponin I 0.327 H* (0.01-0.034) ng/mL NT-Pro-B Natriuret Pep (<125) pg/mL Total Protein (6.3-8.2) g/dL Albumin (3.5-5.0) g/dL Globulin (1.7-4.1) g/dL Albumin/Globulin Ratio (1.0-2.8) Lipase (23-300) U/L Ketones (<0.27) mmol/L A. baumannii (PCR) (Not Detect) Chlamy pneumoniae PCR (Not Detect) Adenovirus (PCR) (Not Detect) B. pertussis DNA (PCR) (Not Detecte) B.parapertussis DNA PCR (Not Detecte) Claudette albicans (PCR) (Not Detect) C. glabrata (PCR) (Not Detect) C. krusei (PCR) (Not Detect) C. parapsilosis (PCR) (Not Detect) C. tropicalis (PCR) (Not Detect) Coronavirus OC43 (PCR) (Not Detect) Coronavirus HKU1 (PCR) (Not Detect) Coronavirus 229E (PCR) (Not Detect) SARS-CoV-2 (PCR) (Not Detecte) Coronavirus NL63 (PCR) (Not Detect) Enterobacteriac sp PCR (Not Detect) E. cloacae complex PCR (Not Detect) Enterococcus sp PCR (Not Detect) E. coli (PCR) (Not Detect) H. influenzae (PCR) (Not Detect) Human Metapneumovir PCR (Not Detect) Influenza Type A (PCR) (Not Detect) Influenza Type B (PCR) (Not Detect) Klebsiella oxytoca PCR (Not Detect) Klebsiella pneumoniae (Not Detect) List. monocytogenes PCR (Not Detect) M. pneumoniae (PCR) (Not Detect) N. meningitidis (PCR) (Not Detect) Parainfluenza 1 (PCR) (Not Detect) Parainfluenza 2 (PCR) (Not Detect) Parainfluenza 3 (PCR) (Not Detect) Parainfluenza 4 (PCR) (Not Detect) Proteus species (PCR) (Not Detect) RSV (PCR) (Not Detect) Entero/Rhino (PCR) (Not Detect) Serratia marcescens PCR (Not Detect) Staphylococcus sp PCR (Not Detect) Staph aureus (PCR) (Not Detect) mecA-Methicil Res Gene Streptococcus sp PCR (Not Detect) Group A Strep (PCR) (Not Detect) Strep agalactiae (PCR) (Not Detect) Strep pneumoniae (PCR) (Not Detect) P. aeruginosa (PCR) (Not Detect) KPC-Carbap Res Gene PCR Blood Type Antibody Screen Crossmatch 01/10/23 01/10/23 01/10/23 Range/Units 08:10 08:10 08:10 WBC 65.5 H* (4.5-11.0) X10^3/uL RBC 1.09 L (4.5-5.9) X10^6/uL Hgb 2.7 L* (13.5-17.5) g/dL Hct 10.5 L* (41-53) % MCV 96.3 D (80-100) fL MCH 24.5 L (26-34) PG MCHC 25.5 L D (30-36) % RDW 20.1 H (11.6-14.8) % Plt Count 42 L (150-400) X10^3/uL Neut % (Auto) Not Reportable Lymph % (Auto) Not Reportable [place] % (Auto) Not Reportable Eos % (Auto) Not Reportable Baso % (Auto) Not Reportable Neut # (Auto) (1933-7636) /uL Lymph # (Auto) Not Reportable [place] # (Auto) Not Reportable Eos # (Auto) (0-450) /uL Baso # (Auto) Not Reportable Total Counted 100 Seg Neutrophils % 10.0 L (38-70) % Band Neutrophils % 1.0 L (3-7) % Lymphocytes % (Manual) 85.0 H (25-45) % Atypical Lymphs % 2.0 H ( - 0) % Monocytes % (Manual) 2.0 (2-11) % Neutrophils # (Manual) 7205 H (7859-9669) /uL Smudge Cells 3+ H RBC Morphology Not Reportable Hypochromasia Poikilocytosis Anisocytosis Tear Drop Cells Ovalocytes Daljit Cells 2+ H Smear Path Review PT (10.1-12.7) SECONDS INR (0.9-1.3) APTT (26-36) SECONDS ABG pH (7.35-7.45) ABG pCO2 (35-45) mmHg ABG pO2 (80-100) mmHg ABG HCO3 (23-27) mmol/L ABG Total CO2 (23-27) mmol/L ABG O2 Saturation (95-100) % ABG Base Excess (-2-3) mmol/L FiO2 Sodium 133 L (137-145) mmol/L Potassium 5.8 H (3.4-5.1) mmol/L Chloride 102 (98-107) mmol/L Carbon Dioxide 13 L (22-32) mmol/L BUN 24 H (9-20) mg/dL Creatinine 1.18 (0.66-1.25) mg/dL Estimated GFR > 60 (>60) mL/min BUN/Creatinine Ratio 20.3 (6-22) Glucose 403 H D (80-110) mg/dL Lactate (0.7-2.1) mmol/L Calcium 7.3 L (8.4-10.2) mg/dL Phosphorus (2.3-3.7) mg/dL Magnesium (1.6-2.3) mg/dL Total Bilirubin 0.9 (0.2-1.3) mg/dL AST 50 (17-59) IU/L ALT 48 (<50) IU/L Alkaline Phosphatase 96 (38-126) U/L Total Creatine Kinase (55-170) U/L CK-MB (CK-2) CK-MB (CK-2) Rel Index Troponin I (0.01-0.034) ng/mL NT-Pro-B Natriuret Pep (<125) pg/mL Total Protein 4.9 L (6.3-8.2) g/dL Albumin 2.8 L (3.5-5.0) g/dL Globulin 2.1 (1.7-4.1) g/dL Albumin/Globulin Ratio 1.3 (1.0-2.8) Lipase (23-300) U/L Ketones (<0.27) mmol/L A. baumannii (PCR) (Not Detect) Chlamy pneumoniae PCR (Not Detect) Adenovirus (PCR) (Not Detect) B. pertussis DNA (PCR) (Not Detecte) B.parapertussis DNA PCR (Not Detecte) Claudette albicans (PCR) (Not Detect) C. glabrata (PCR) (Not Detect) C. krusei (PCR) (Not Detect) C. parapsilosis (PCR) (Not Detect) C. tropicalis (PCR) (Not Detect) Coronavirus OC43 (PCR) (Not Detect) Coronavirus HKU1 (PCR) (Not Detect) Coronavirus 229E (PCR) (Not Detect) SARS-CoV-2 (PCR) (Not Detecte) Coronavirus NL63 (PCR) (Not Detect) Enterobacteriac sp PCR (Not Detect) E. cloacae complex PCR (Not Detect) Enterococcus sp PCR (Not Detect) E. coli (PCR) (Not Detect) H. influenzae (PCR) (Not Detect) Human Metapneumovir PCR (Not Detect) Influenza Type A (PCR) (Not Detect) Influenza Type B (PCR) (Not Detect) Klebsiella oxytoca PCR (Not Detect) Klebsiella pneumoniae (Not Detect) List. monocytogenes PCR (Not Detect) M. pneumoniae (PCR) (Not Detect) N. meningitidis (PCR) (Not Detect) Parainfluenza 1 (PCR) (Not Detect) Parainfluenza 2 (PCR) (Not Detect) Parainfluenza 3 (PCR) (Not Detect) Parainfluenza 4 (PCR) (Not Detect) Proteus species (PCR) (Not Detect) RSV (PCR) (Not Detect) Entero/Rhino (PCR) (Not Detect) Serratia marcescens PCR (Not Detect) Staphylococcus sp PCR (Not Detect) Staph aureus (PCR) (Not Detect) mecA-Methicil Res Gene Streptococcus sp PCR (Not Detect) Group A Strep (PCR) (Not Detect) Strep agalactiae (PCR) (Not Detect) Strep pneumoniae (PCR) (Not Detect) P. aeruginosa (PCR) (Not Detect) KPC-Carbap Res Gene PCR Blood Type A Positive Antibody Screen Negative Crossmatch See Detail 01/10/23 01/10/23 Range/Units 09:12 09:43 WBC 110.0 H* D (4.5-11.0) X10^3/uL RBC 2.68 L (4.5-5.9) X10^6/uL Hgb 6.4 L* (13.5-17.5) g/dL Hct 24.2 L (41-53) % MCV 90.3 D (80-100) fL MCH 24.0 L (26-34) PG MCHC 26.5 L (30-36) % RDW 19.9 H (11.6-14.8) % Plt Count 78 L (150-400) X10^3/uL Neut % (Auto) 7.9 L Lymph % (Auto) 89.6 H [place] % (Auto) 2.4 L Eos % (Auto) 0.0 L Baso % (Auto) 0.1 Neut # (Auto) 8700 H (5459-4282) /uL Lymph # (Auto) 31796 H [place] # (Auto) 2600 H Eos # (Auto) 0 (0-450) /uL Baso # (Auto) 100 Total Counted Seg Neutrophils % (38-70) % Band Neutrophils % (3-7) % Lymphocytes % (Manual) (25-45) % Atypical Lymphs % ( - 0) % Monocytes % (Manual) (2-11) % Neutrophils # (Manual) (6649-9477) /uL Smudge Cells RBC Morphology Hypochromasia Poikilocytosis Anisocytosis Tear Drop Cells Ovalocytes Daljit Cells Smear Path Review PT (10.1-12.7) SECONDS INR (0.9-1.3) APTT (26-36) SECONDS ABG pH 7.12 L* (7.35-7.45) ABG pCO2 48.9 H (35-45) mmHg ABG pO2 100 (80-100) mmHg ABG HCO3 16 L (23-27) mmol/L ABG Total CO2 18 L (23-27) mmol/L ABG O2 Saturation 95 (95-100) % ABG Base Excess -13.0 L (-2-3) mmol/L FiO2 100 Sodium (137-145) mmol/L Potassium (3.4-5.1) mmol/L Chloride (98-107) mmol/L Carbon Dioxide (22-32) mmol/L BUN (9-20) mg/dL Creatinine (0.66-1.25) mg/dL Estimated GFR (>60) mL/min BUN/Creatinine Ratio (6-22) Glucose (80-110) mg/dL Lactate (0.7-2.1) mmol/L Calcium (8.4-10.2) mg/dL Phosphorus (2.3-3.7) mg/dL Magnesium (1.6-2.3) mg/dL Total Bilirubin (0.2-1.3) mg/dL AST (17-59) IU/L ALT (<50) IU/L Alkaline Phosphatase (38-126) U/L Total Creatine Kinase (55-170) U/L CK-MB (CK-2) CK-MB (CK-2) Rel Index Troponin I (0.01-0.034) ng/mL NT-Pro-B Natriuret Pep (<125) pg/mL Total Protein (6.3-8.2) g/dL Albumin (3.5-5.0) g/dL Globulin (1.7-4.1) g/dL Albumin/Globulin Ratio (1.0-2.8) Lipase (23-300) U/L Ketones (<0.27) mmol/L A. baumannii (PCR) (Not Detect) Chlamy pneumoniae PCR (Not Detect) Adenovirus (PCR) (Not Detect) B. pertussis DNA (PCR) (Not Detecte) B.parapertussis DNA PCR (Not Detecte) Claudette albicans (PCR) (Not Detect) C. glabrata (PCR) (Not Detect) C. krusei (PCR) (Not Detect) C. parapsilosis (PCR) (Not Detect) C. tropicalis (PCR) (Not Detect) Coronavirus OC43 (PCR) (Not Detect) Coronavirus HKU1 (PCR) (Not Detect) Coronavirus 229E (PCR) (Not Detect) SARS-CoV-2 (PCR) (Not Detecte) Coronavirus NL63 (PCR) (Not Detect) Enterobacteriac sp PCR (Not Detect) E. cloacae complex PCR (Not Detect) Enterococcus sp PCR (Not Detect) E. coli (PCR) (Not Detect) H. influenzae (PCR) (Not Detect) Human Metapneumovir PCR (Not Detect) Influenza Type A (PCR) (Not Detect) Influenza Type B (PCR) (Not Detect) Klebsiella oxytoca PCR (Not Detect) Klebsiella pneumoniae (Not Detect) List. monocytogenes PCR (Not Detect) M. pneumoniae (PCR) (Not Detect) N. meningitidis (PCR) (Not Detect) Parainfluenza 1 (PCR) (Not Detect) Parainfluenza 2 (PCR) (Not Detect) Parainfluenza 3 (PCR) (Not Detect) Parainfluenza 4 (PCR) (Not Detect) Proteus species (PCR) (Not Detect) RSV (PCR) (Not Detect) Entero/Rhino (PCR) (Not Detect) Serratia marcescens PCR (Not Detect) Staphylococcus sp PCR (Not Detect) Staph aureus (PCR) (Not Detect) mecA-Methicil Res Gene Streptococcus sp PCR (Not Detect) Group A Strep (PCR) (Not Detect) Strep agalactiae (PCR) (Not Detect) Strep pneumoniae (PCR) (Not Detect) P. aeruginosa (PCR) (Not Detect) KPC-Carbap Res Gene PCR Blood Type Antibody Screen Crossmatch Point of Care Testing Glucose POC 331 Point of care testing: Point of Care Testing Glucose POC 331 MDM Narrative Medical decision making narrative: Patient arrived diaphoretic however was been having shortness of breath specific dyspnea on exertion for the past several weeks if not longer. Initially was difficult to obtain an EKG on the patient does he had quite a bit of artifact however there did not appear to be any ST elevations. Troponin elevated. Started on heparin. Was given an aspirin. His BNP was elevated. Chest x-ray initially showed what was concern for left lower lobe pneumonia. He was given Levaquin for this. CT scan of his chest did not specifically talk about a consolidation but was concerning for CHF. Patient does not have any diagnosis of this. I discussed the case with Dr. Iniguez with cardiology. He stated based on his presentation and his low hemoglobin and hematocrit in history of CLL and his elevated BNP that the patient would not be a candidate for an emergent catheterization. According to my discussion with them there was more concern about this being heart failure so he recommended diuresis and echocardiogram. Patient was stable overnight. Was alert oriented. Was sitting at bedside. Did rest. Diuresed approximately 500 cc of urine. Patient then had a sudden onset of was initially a narrow complex tachycardia. Concern for SVT versus ventricular tachycardia. Patient did have respiratory distress during this time. Prior to any specific intervention the fast heart rate resolved. The patient clinically improved. He then had another onset of the same rhythm. He very quickly lost pulses. CPR was performed for approximately 15-20 seconds. Patient then reached up to the individual giving CPR. He was then oriented. Stated that he was not feeling well. Very shortly afterwards the rhythm went back to sinus rhythm. Had a systolic blood pressure greater than 100. Was not in respiratory distress. Clinically improved quite a bit. His color improved. I did discuss the case with Dr. Aggarwal. The rhythm strip and EKGs were sent to him. He evaluated these. He stated that the rhythm appeared to be ventricular tachycardia. Recommended amiodarone. Patient was given 150 mg of amiodarone. Short time later patient had another episode of the tachycardia in the same morphology. Another 150 mg of amiodarone was administered. Amiodarone drip was being prepared. The patient then once again became unresponsive. CPR was administered. The 1st rhythm check patient did not have a pulse. 1 mg of epinephrine was administered and CPR was started. Shortly after the patient started to respond to CPR. CPR was stopped. Both femoral radial and carotid pulses were felt. Heart rate was in the 60s. Patient did not specifically regain consciousness. He had agonal breathing. Patient was intubated. Started on fentanyl and Versed for sedation. Right femoral line placed. Patient was hypotensive. Pressor started. Care turned over to Dr. Agarwal for further e valuation until transfer. I did discuss the events this morning with the patient's son who was coming to the emergency department. Discussed case with Dr Aquino at [facility] ICU. 9:27 a.m.. Patient care has been discussed with [place] ICU by Dr. Santos, peripheral edp equipment operator Will accept pt. patient will be air lifted to [facility] ICU. Son at bedside and is aware of patient condition and need for transfer. Dr Santos has spoken with son. Any BANDA 01/13/2023 10:04 Dr. Rizvi-blood cultures are positive. Results are faxed to [facility] Gram Stain #1 Gram positive cocci Gram Stain #2 Gram positive cocci Organism 1 Streptococcus infantarius ssp Action to follow No Further Workup BC Comments In Both Anaerobic and Aerobic Bottles Called To: [facility], ED 1. Streptococcus infantarius ssp M.I.C. RX --------- --- * Ampicillin <=0.25 S * Vancomycin 0.25 S * Cefotaxime <=0.12 S * Ceftriaxone 0.25 S * Clindamycin <=0.25 S * Erythromycin <=0.12 S * Levofloxacin 2 S * Linezolid <=2 S * Tetracycline <=0.25 S Critical Care Time <Chang Santos, DO - Last Filed: 01/10/23 17:58> Critical Care Time Critical Care Time: Yes Total Critical Care Time: 60 Attestation: The high probability of a clinically significant, sudden or life threatening deterioration of the [cardiovascular/respiratory] system(s) required my full and direct attention, intervention and personal management. The aggregate critical care time was [60] minutes. This time is in addition to time spent performing reported procedures but includes the following: [x] Data Review and interpretation [x] Patient assessment and monitoring of vital signs [x] Documentation [x] Medication orders and management Discharge Plan Departure Patient Disposition: [facility] Clinical Impression: Cardiac arrest Prescriptions: No Action lisinopril 20 mg tablet 20 mg PO DAILY rosuvastatin 5 mg tablet 5 mg PO DAILY oxycodone-acetaminophen 5-325 mg tablet 1 tab PO TID PRN (Reason: pain) Qty: 9 0RF Referrals: Miscellaneous,Doctor, MD [Primary Care Provider] -
--- NOTE | 2023-01-09 19:45 | DI.CT.S_ITS ---
PROCEDURE: CT ANGIO CHEST PE PROTOCOL INDICATIONS: eval for PE TECHNIQUE: After the administration of intravenous contrast, 2 mm thick sections acquired from the pulmonary apices to the posterior costophrenic angles. 3-dimensional maximum intensity projection (MIP) coronal and sagittal reformats were then acquired through the thorax. For radiation dose reduction, the following was used: automated exposure control, adjustment of mA and/or kV according to patient size. COMPARISON: [facility], CR, XR CHEST 1V, 01/09/2023, 19:31. FINDINGS: Image quality: Excellent. Pulmonary arteries: Pulmonary arteries demonstrate no intraluminal filling defects to suggest central pulmonary embolism. There is enlargement of the pulmonary arteries, with the main pulmonary artery measuring up to 4.3 cm suggestive of pulmonary arterial hypertension. Lower Neck: No lymphadenopathy by size criteria. Thyroid: Visualized thyroid demonstrates no discrete nodules. Axillae: There are bilateral mildly enlarged axillary and subpectoral lymph nodes. These include a right axillary node measuring up to 1.5 cm on series 4, image 42. Chest Wall: Unremarkable. Bones: Visualized osseous structures demonstrate no suspicious lesions. Lungs and Airways: No acute consolidation. There is mild dependent atelectasis bilaterally. Mild interlobular septal thickening is demonstrated bilaterally with scattered indistinct areas of ground-glass opacities suggestive of pulmonary edema. The trachea and central airways are patent. Pleura: No pneumothorax. There are small bilateral pleural effusions. Heart: Heart size is mildly enlarged. There is a small pericardial effusion. Thoracic Vessels: The thoracic aorta is normal in size. Mediastinum and Mirna: There are multiple mildly enlarged mediastinal lymph nodes including a precarinal node measuring up to 1.6 cm in short axis on series 4, image 59. A footwear sales representative subcarinal node also measures approximately 1.5 cm. Esophagus: No wall thickening. No hiatal hernia. Abdomen: Visualized upper abdomen demonstrates enlargement of the visualized spleen which measures up to 20.0 cm in anteroposterior dimension. There are mildly enlarged mesenteric and retroperitoneal lymph nodes within the visualized upper abdomen. A footwear sales representative peripancreatic node measures up to 1.4 cm on series 4, image 173. A footwear sales representative celiac axis node measures up to 1.3 cm on series 4, image 160. IMPRESSION: 1. No evidence of pulmonary embolism. Enlargement of the pulmonary arteries suggestive of pulmonary arterial hypertension. 2. Lymphadenopathy demonstrated in the mediastinum, bilateral axilla, and upper abdomen. Splenomegaly is also demonstrated. The findings are suggestive of lymphoma. The differential also includes metastatic disease. 3. Small bilateral pleural effusions, pulmonary edema, and cardiomegaly suggestive of congestive heart failure. 4. Small pericardial effusion. Dictated by: Edwin Byrnes M.D. on 01/09/2023 at 22:00 Approved by: Edwin Byrnes M.D. on 01/09/2023 at 22:08
[2023-01-09 20:25] LABS: Hematocrit 25.3 % (41-53); Hemoglobin 7.5 g/dL (13.5-17.5); Mean Corpuscular HGB Conc 29.7 % (30-36); Mean Corpuscular Hemoglobin 24.3 PG (26-34); Mean Corpuscular Volume 82.1 fL (80-100); Platelet Count 88 X10^3/uL (150-400); Red Blood Cell Count 3.09 X10^6/uL (4.5-5.9); Red Cell Distribution Width 18.7 % (11.6-14.8)
[2023-01-09 20:32] LABS: Lactate (Lactic Acid) 1.2 mmol/L (0.7-2.1)
[2023-01-09 20:33] LABS: Alanine Aminotransferase 28 IU/L (<50); Albumin 3.7 g/dL (3.5-5.0); Albumin Globulin Ratio 1.4 (1.0-2.8); Alkaline Phosphatase 129 U/L (38-126); Aspartate Aminotransferase 32 IU/L (17-59); BUN Creatinine Ratio 24.4 (6-22); Bilirubin Total 0.8 mg/dL (0.2-1.3); Blood Urea Nitrogen 21 mg/dL (9-20); Calcium 8.6 mg/dL (8.4-10.2); Carbon Dioxide 20 mmol/L (22-32); Chloride 102 mmol/L (98-107); Creatine Kinase < 20 U/L (55-170); Estimated Glomerular Filt Rate > 60 mL/min (>60); Globulin 2.6 g/dL (1.7-4.1); Glucose 142 mg/dL (80-110); HEMOLYSIS < 15 (0-50); Lipase 38 U/L (23-300); Sodium 134 mmol/L (137-145); Total Protein 6.3 g/dL (6.3-8.2)
[2023-01-09 20:36] LABS: Add Manual Diff / Slide Review YES; White Blood Cell Count 70.4 X10^3/uL (4.5-11.0)
[2023-01-09 20:41] LABS: Magnesium 2.2 mg/dL (1.6-2.3); Phosphorous 4.3 mg/dL (2.3-3.7)
[2023-01-09 20:42] LABS: NT-proBNP (BNP-Adult 18+) 6590 pg/mL (<125)
[2023-01-09 20:43] LABS: Ketones (Beta-Hydroxybutyrate) 0.87 mmol/L (<0.27)
[2023-01-09 20:45] LABS: Anisocytosis 1+; Neutrophils Absolute Manual 8448 /uL (3000-5900); Total Cells Counted 100
[2023-01-09 20:46] LABS: Poikilocytosis 3+; Tear Drop Cells 1+
[2023-01-09] MEDS: diphenhydrAMINE 50 MG/ML VIAL 25 MG IV (20:46)
[2023-01-09] MEDS: methylPREDNISolone 125 MG/2 ML VIAL IV (20:46)
[2023-01-09 20:47] LABS: Ovalocytes 2+; Smudge Cells 4+
[2023-01-09 20:48] LABS: Hypochromasia 1+
[2023-01-09] MEDS: levoFLOXacin 750 MG/150 ML PIGGYBACK 100 MG IV (20:58)
[2023-01-09 21:06] LABS: HCO3 ABG 22 mmol/L (23-27); Oxygen Saturation ABG 95 % (95-100); PCO2 ABG 28.8 mmHg (35-45); PO2 ABG 66 mmHg (80-100); TCO2 ABG 22 mmol/L (23-27); pH ABG 7.48 (7.35-7.45)
[2023-01-09 21:07] LABS: Fractionated Inspired Oxygen 21
[2023-01-09 21:25] LABS: Troponin I 0.135 ng/mL (0.01-0.034)
[2023-01-09 21:41] LABS: Adenovirus Not Detected (Not Detect); B. parapertussis Not Detected (Not Detecte); Bordetella pertussis Not Detected (Not Detecte); Chlamydophila pneumoniae Not Detected (Not Detect); Coronavirus 229E Not Detected (Not Detect); Coronavirus HKU1 Not Detected (Not Detect); Coronavirus NL 63 Not Detected (Not Detect); Coronavirus OC43 Not Detected (Not Detect); Human Metapneumovirus Not Detected (Not Detect); Human Rhinovirus/Enterovirus Not Detected (Not Detect); Influenza A Not Detected (Not Detect); Influenza B Not Detected (Not Detect); Mycoplasma pneumoniae Not Detected (Not Detect); Parainfluenza Virus 1 Not Detected (Not Detect); Parainfluenza Virus 2 Not Detected (Not Detect); Parainfluenza Virus 3 Not Detected (Not Detect); Parainfluenza Virus 4 Not Detected (Not Detect); Respiratory Syncytial Virus Not Detected (Not Detect); SARS- CoV-2 Not Detected (Not Detecte)
[2023-01-09] MEDS: ASPIRIN 81 MG CHEW TAB 324 MG PO (22:17)
[2023-01-09 22:58] LABS: Creatine Kinase < 20 U/L (55-170)
[2023-01-09 23:14] LABS: Troponin I 0.346 ng/mL (0.01-0.034)
[2023-01-09 23:30] LABS: INR 1.4 (0.9-1.3); Prothrombin Time 15.7 SECONDS (10.1-12.7)
[2023-01-09] MEDS: HEPARIN 5,000 UNIT/ML VIAL 5000 UNIT IV (23:36)
[2023-01-09 23:39] LABS: PTT Partial Thromboplastin Tim 29 SECONDS (26-36)
[2023-01-09] MEDS: HEPARIN DRIP 25,000 UNIT/500 ML IV.SOLN 20 UNIT IV (23:46)
[2023-01-10] VITALS (105 sets, daily range): BP systolic 86–186; BP diastolic 31–79; PULSE 43–215; RESP 19–46; TEMP 35.9; O2SAT 91–100
[2023-01-10 02:15] LABS: Creatine Kinase 24 U/L (55-170)
[2023-01-10 02:29] LABS: Troponin I 0.414 ng/mL (0.01-0.034)
[2023-01-10] MEDS: FUROSEMIDE 40 MG TABLET PO (04:42)
[2023-01-10 06:00] LABS: PTT Partial Thromboplastin Tim 31 SECONDS (26-36)
--- NOTE | 2023-01-10 06:26 | PC.NURSE ---
0613: VT, pt unresponsive. CPR started. Cardiac pads attached. 0615: Pt moaning and making eye contact. Strong pulse present. Sunis tach at 135. 0621: Preparing to intubate. 15L non-rebreather applied. Pt A&Ox4. Clammy and pale.
[2023-01-10 06:30] LABS: Troponin I 0.327 ng/mL (0.01-0.034)
[2023-01-10] MEDS: AMIODARONE 150 MG/3 ML VIAL IV (06:33)
[2023-01-10] MEDS: AMIODARONE 360 MG/200 ML PIGGYBACK 33.3 MG IV (07:00)
[2023-01-10] MEDS: fentaNYL 1,000 MCG in DEXTROSE 5% IN WATER 230 ML 21.829 MCG IV (07:00)
[2023-01-10] MEDS: MIDAZOLAM 50 MG in DEXTROSE 5% IN WATER 240 ML 25 MG IV (07:10)
--- NOTE | 2023-01-10 07:30 | DI.RAD.S_ITS ---
PROCEDURE: XR CHEST 1V INDICATIONS: ET TUBE PLACEMENT TECHNIQUE: One view of the chest was acquired. COMPARISON: [facility], CR, XR CHEST 1V, 01/09/2023, 19:31. FINDINGS: Surgical changes and devices: Endotracheal tube tip projects 7.7 centimeters above the jose. Lungs and pleura: Diffuse right lung airspace opacities, progressed from prior. Retrocardiac opacity, progressed from prior. Mediastinum: Cardiomegaly. Bones and chest wall: No suspicious bony lesions. Overlying soft tissues appear unremarkable. IMPRESSION: Endotracheal tube tip projects 7.7 centimeter above the jose. Worsening bilateral airspace opacities, concerning for acute lung injury or progressing pulmonary edema. Dictated by: Jerad Lara M.D. on 01/10/2023 at 8:23 Approved by: Jerad Lara M.D. on 01/10/2023 at 8:24
[2023-01-10] MEDS: HEPARIN 5,000 UNIT/ML VIAL 3000 UNIT IV (07:49)
--- NOTE | 2023-01-10 07:54 | PC.NURSE ---
0652: 7.5 size ET placed. Equal chest rise noted to pt's chest with bag ventilation.
[2023-01-10] MEDS: HEPARIN DRIP 25,000 UNIT/500 ML IV.SOLN 22 UNIT IV (07:55)
--- NOTE | 2023-01-10 07:59 | PC.NURSE ---
06:13 vtach alarm went off, found patient unresponsive, CPR started. Cardiac pads attached. 06:15 strong pulse felt, patient moaned, awake, responding. Sinus tach HR 135 06:21 pt agonal breathing, preparing to intubate, 15L non rebreather applied. see paper charting from here. 400ml urine output in urinal found at bedside at code start.
[2023-01-10] MEDS: DOBUTAMINE 250 MG IN D5W 250 MG/250 ML IV.SOLN 18.711 MG IV (08:05)
[2023-01-10] MEDS: NOREPINEPHRINE BITARTRATE/D5W 4 MG/250 ML PLAST..BAG 75 MG IV ×2 (08:16→10:00)
[2023-01-10] MEDS: SODIUM BICARB 8.4% SYRINGE 50 MEQ IV (08:17)
[2023-01-10 08:29] LABS: Mean Corpuscular HGB Conc 25.5 % (30-36); Mean Corpuscular Hemoglobin 24.5 PG (26-34); Mean Corpuscular Volume 96.3 fL (80-100); Platelet Count 42 X10^3/uL (150-400); Red Blood Cell Count 1.09 X10^6/uL (4.5-5.9); Red Cell Distribution Width 20.1 % (11.6-14.8)
[2023-01-10 08:34] LABS: Add Manual Diff / Slide Review YES; Hematocrit 10.5 % (41-53); Hemoglobin 2.7 g/dL (13.5-17.5); White Blood Cell Count 65.5 X10^3/uL (4.5-11.0)
[2023-01-10 08:40] LABS: Neutrophils Absolute Manual 7205 /uL (3000-5900); Total Cells Counted 100
[2023-01-10 08:41] LABS: Burr Cells 2+; Smudge Cells 3+
--- NOTE | 2023-01-10 08:57 | PC.NURSE ---
0571-4614: Arrived to pt's room. appears to be in ROSC s/p VTACH arrest. Pt intubated with 7.5 ETT 23 @ lip. Ventilated 600/20/100/8 SPO2 97%. BP 70's systolic and Norepi started. Dr Agarwal at bedside placing R femoral CL. XR confirmed placement. 18F OG placed with adequate output. Neuro: Intubated sedated Versed and fentanyl per JAN. +cough + gag Resp: 600/20RR/100%/8 Cardiac: Amio gtt for VTACH. HR 90's appears regular. Norepi at 20 mcg/min, Dobutamine at 7 mcg/kg/min. BP 99-101/systolic MAP 65-70. GI: 18F OG with dark red drainage : 16F ruff with 50-100ml output. IV: triple lumen R Fem CL, DAYANARA midline, 20G RPIV Heparin DC'd by Dr Santos for Critical Hgb/HCT per Labs. Airlift in route for transfer to [facility].
[2023-01-10 09:25] LABS: Albumin 2.8 g/dL (3.5-5.0); Albumin Globulin Ratio 1.3 (1.0-2.8); Alkaline Phosphatase 96 U/L (38-126); Aspartate Aminotransferase 50 IU/L (17-59); BUN Creatinine Ratio 20.3 (6-22); Bilirubin Total 0.9 mg/dL (0.2-1.3); Blood Urea Nitrogen 24 mg/dL (9-20); Calcium 7.3 mg/dL (8.4-10.2); Carbon Dioxide 13 mmol/L (22-32); Chloride 102 mmol/L (98-107); Estimated Glomerular Filt Rate > 60 mL/min (>60); Globulin 2.1 g/dL (1.7-4.1); HEMOLYSIS < 15 (0-50); Sodium 133 mmol/L (137-145); Total Protein 4.9 g/dL (6.3-8.2)
[2023-01-10 09:26] LABS: Add Manual Diff / Slide Review NO; Basophils Absolute Auto 100 /uL (0-100); Basophils Percent Auto 0.1 % (0-2); Eosinophils Absolute Auto 0 /uL (0-450); Hematocrit 24.2 % (41-53); Hemoglobin 6.4 g/dL (13.5-17.5); Lymphocytes Absolute Auto 98500 /uL (1100-4500); Lymphocytes Percent Auto 89.6 % (25-40); Mean Corpuscular HGB Conc 26.5 % (30-36); Mean Corpuscular Volume 90.3 fL (80-100); Monocytes Absolute Auto 2600 /uL (0-900); Monocytes Percent Auto 2.4 % (3-14); Neutrophils Absolute Auto 8700 /uL (1500-7000); Neutrophils Percent Auto 7.9 % (50-75); Platelet Count 78 X10^3/uL (150-400); Red Blood Cell Count 2.68 X10^6/uL (4.5-5.9); Red Cell Distribution Width 19.9 % (11.6-14.8)
[2023-01-10 09:26] LABS: Potassium 5.8 mmol/L (3.4-5.1)
[2023-01-10 09:27] LABS: Glucose 403 mg/dL (80-110)
[2023-01-10 09:35] LABS: Alanine Aminotransferase 48 IU/L (<50)
--- NOTE | 2023-01-10 10:08 | PC.NURSE ---
1000: pt switched to [facility] pads and body presser. NSR 90's and BP 88/31 All gtts switched to [facility] pumps. Report given to TRACEY Kuhn. Pt receiving 1 unit PRBC's at this time. [facility] deemed pt too unstable with too many infusions to safely fly. Awaiting ground crew. Handoff given to [facility].
[2023-01-10 10:31] LABS: Fractionated Inspired Oxygen 100; HCO3 ABG 12 mmol/L (23-27); Oxygen Saturation ABG 93 % (95-100); PCO2 ABG 48.4 mmHg (35-45); PO2 ABG 99 mmHg (80-100); TCO2 ABG 13 mmol/L (23-27)
[2023-01-10 10:32] LABS: pH ABG 6.99 (7.35-7.45)
--- NOTE | 2023-01-10 10:46 | PC.NURSE ---
Pt DC'd with [facility] crew TRACEY Kuhn and TRACEY Barber and [facility] M16 crew to [facility] at this time with all infusions and PRBC's infusing.
--- NOTE | 2023-01-10 10:50 | PC.NURSE ---
BLOOD TAR NOTE: Pt transferred out of facility with PRBC's infusing in the care of [facility].
[2023-01-10 11:25] LABS: pH ABG 7.12 (7.35-7.45)
[2023-01-10 11:26] LABS: Fractionated Inspired Oxygen 100; HCO3 ABG 16 mmol/L (23-27); Oxygen Saturation ABG 95 % (95-100); PCO2 ABG 48.9 mmHg (35-45); PO2 ABG 100 mmHg (80-100); TCO2 ABG 18 mmol/L (23-27)
--- NOTE | 2023-01-10 11:44 | PC.NURSE ---
Report given to TRACEY Mulligan [facility]
[2023-01-10 14:01] LABS: Acinetobacter baumannii Not Detected (Not Detect); Candida albicans Not Detected (Not Detect); Candida glabrata Not Detected (Not Detect); Candida krusei Not Detected (Not Detect); Candida parapsilosis Not Detected (Not Detect); Candida tropicalis Not Detected (Not Detect); E. coli Not Detected (Not Detect); Enterobacter cloacae complex Not Detected (Not Detect); Enterobacteriaceae species Not Detected (Not Detect); Enterococcus species Not Detected (Not Detect); Haemophilus influenzae Not Detected (Not Detect); Listeria monocytogenes Not Detected (Not Detect); Neisseria meningitidis Not Detected (Not Detect); Proteus species Not Detected (Not Detect); Pseudomonas aeruginosa Not Detected (Not Detect); Serratia marcescens Not Detected (Not Detect); Staphylococcus species Not Detected (Not Detect); Streptococcus agalactiae (Gr B Not Detected (Not Detect); Streptococcus pneumonia Not Detected (Not Detect); Streptococcus pyogenes (Gr A) Not Detected (Not Detect); Streptococcus species Detected (Not Detect)
== END 2023-01-10 10:50 | disposition short-term general hospital (02) ==
PROVIDERS: Emergency Medicine; Emergency Provider Emergency Medicine
DX: I46.9 Cardiac arrest, cause unspecified (principal); I95.9 Hypotension, unspecified; R00.0 Tachycardia, unspecified; Z20.822 Contact with and (suspected) exposure to COVID-19
CPT/HCPCS: 31500; 36415; 36430; 36569; 36600; 71045; 71275; 80053; 82009; 82550; 82553; 82805; 82962; 83605; 83690; 83735; 83880; 84100; 84484; 85007; 85025; 85610; 85730; 86850; 86900; 86901; 87040; 87077; 87150; 87186; 87633; 93005; 93306; 94002; 94799; 96365; 96366; 96367; 96368; 96375; 96376; 99285; 99291; P9016; J0171; J0282; J0330; J1200; J1644; J1956; J2250; J2930; J3010; Q9967